=== PATIENT | female | born 1995 | race Caucasian/White ===

== ENCOUNTER → 2019-05-16 16:36 | Outpatient (BNVA) | payer SELFPAY | PROVIDERS: Family Provider Emergency Medicine; PCP Emergency Medicine; Visit Provider Nurse Practitioner Family | DX: S61.259A Open bite of unspecified finger without damage to nail, initial encounter (principal); W54.0XXA Bitten by dog, initial encounter | CPT/HCPCS: 73130 ==

== ENCOUNTER → 2019-05-24 17:00 | Outpatient (BNVA) | payer SELFPAY | PROVIDERS: Family Provider Emergency Medicine; PCP Emergency Medicine; Visit Provider Emergency Medicine | DX: N92.6 Irregular menstruation, unspecified (principal) | CPT/HCPCS: 81025; 84702 ==

== ENCOUNTER → 2019-08-12 17:03 | Outpatient (BNVA) | payer SELFPAY | PROVIDERS: Family Provider Emergency Medicine; PCP Emergency Medicine; Visit Provider Nurse Practitioner Family | DX: S99.922A Unspecified injury of left foot, initial encounter (principal); X58.XXXA Exposure to other specified factors, initial encounter | CPT/HCPCS: 73630 ==

== ENCOUNTER → 2019-10-26 15:23 | Outpatient (BNVA) | payer MEDICAID, SELFPAY | PROVIDERS: Family Provider Emergency Medicine; PCP Emergency Medicine; Visit Provider Emergency Medicine | DX: J02.9 Acute pharyngitis, unspecified (principal) | CPT/HCPCS: 87071; 87880 ==

== ENCOUNTER → 2019-10-27 16:39 | Outpatient (BNVA) | payer MEDICAID, SELFPAY | PROVIDERS: Family Provider Emergency Medicine; PCP Emergency Medicine; Visit Provider Emergency Medicine | DX: J02.9 Acute pharyngitis, unspecified (principal); R68.89 Other general symptoms and signs; Z20.828 Contact with and (suspected) exposure to other viral communicable diseases | CPT/HCPCS: 87635 ==

== ENCOUNTER → 2019-12-06 15:31 | Outpatient (BNVA) | payer MEDICAID, SELFPAY | PROVIDERS: Family Provider Emergency Medicine; PCP Emergency Medicine; Visit Provider Obstetrics & Gynecology | DX: Z30.017 Encounter for initial prescription of implantable subdermal contraceptive (principal) | CPT/HCPCS: 81025 ==

== ENCOUNTER 2019-12-16 13:09 | Outpatient (CLI) | payer SELFPAY ==
--- NOTE | 2019-12-16 13:25 | US_ITS ---
WS: [id number] ULTRASOUND RIGHT BREAST HISTORY: Right Breast Lump, Right Breast Pain COMPARISON: None available. TECHNIQUE: 2-D and Doppler. Patient directed ultrasound to the area of pain from 3:00 to 9:00 axis. There is normal breast tissue . No solid or cystic masses. No skin thickening. US/US breast RT limited* [id number] IMPRESSION: BI-RADS: 1-Negative FOLLOW-UP: See Report No abnormality RIGHT breast. No additional imaging necessary.
== END 2019-12-16 13:10 | disposition home or self-care (01) ==
LOC: RADSHAW 13:13
PROVIDERS: Visit Provider Obstetrics & Gynecology
DX: N63.10 Unspecified lump in the right breast, unspecified quadrant (principal); N64.4 Mastodynia
CPT/HCPCS: 76642

== ENCOUNTER 2022-11-07 18:01 | Emergency (ER) | payer MEDICAID, SELFPAY ==
[2022-11-07 18:03] VITALS: BP 136/94; PULSE 120; RESP 18; TEMP 36.8; O2SAT 98
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
[2022-11-07 18:15] VITALS: BP 136/94; PULSE 119; RESP 18; O2SAT 97
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
--- NOTE | 2022-11-07 19:01 | PC.NURSE ---
Report taken from AFSHIN Stewart at this time.
[2022-11-07] MEDS: HYDROcodone-acetaminophen 5-325 mg Tablet 1 TAB PO (19:20)
[2022-11-07 19:26] VITALS: BP 153/108; PULSE 125; RESP 18; O2SAT 94
--- NOTE | 2022-11-07 19:34 | PC.NURSE ---
Patient given education by nurse on how to use crutches; educated to adjust height to comfort under axilla but to not have excessive pressure under arms. Instructed to use crutches in slow, controlled manner and prompted to use toe-touch technique as tolerated, as no fractures were demonstrated on x-ray. Pt's RLE was wrapped with marisel and crutches were given to patient. Patient was encouraged to slowly use crutches; nurse noticed patient attempting to walk quickly with crutches and was educated to slow down and use crutches in calm, controlled fashion to prevent falls. Patient verbalized understanding to all teaching given and had no questions or concerns. Was given discharge education packet and verbalized understanding to use discharge packet for additional education if further questions were to come up. Patient left ER room 15 after discharge with friend, and went to ER room 13 to see , who is also a patient.
== END 2022-11-07 19:38 | disposition home or self-care (01) ==
PROVIDERS: Emergency Provider Nurse Practitioner Family
DX: Z04.1 Encounter for examination and observation following transport accident (principal); S80.11XA Contusion of right lower leg, initial encounter; I10 Essential (primary) hypertension; V49.50XA Passenger injured in collision with unspecified motor vehicles in traffic accident, initial encounter
CPT/HCPCS: 73590; 99283; E0114

== ENCOUNTER → 2022-12-15 14:58 | Outpatient (BNVA) | payer MEDICAID, SELFPAY | PROVIDERS: PCP Family Medicine; Visit Provider Family Medicine | DX: I10 Essential (primary) hypertension; F32.9 Major depressive disorder, single episode, unspecified; Z51.81 Encounter for therapeutic drug level monitoring; R00.0 Tachycardia, unspecified; Z13.1 Encounter for screening for diabetes mellitus; Z13.220 Encounter for screening for lipoid disorders; Z13.6 Encounter for screening for cardiovascular disorders; J44.9 Chronic obstructive pulmonary disease, unspecified; E34.9 Endocrine disorder, unspecified; E03.9 Hypothyroidism, unspecified | CPT/HCPCS: 80053; 80061; 84403; 84443; 85025 ==

== ENCOUNTER → 2022-12-22 10:08 | Outpatient (BNVA) | payer MEDICAID, SELFPAY | PROVIDERS: PCP Family Medicine; Visit Provider Psychiatry & Neurology Psychiatry | DX: Z79.899 Other long term (current) drug therapy (principal); F33.3 Major depressive disorder, recurrent, severe with psychotic symptoms; F43.12 Post-traumatic stress disorder, chronic; F32.1 Major depressive disorder, single episode, moderate | CPT/HCPCS: 80061; 80307; 83036 ==

== ENCOUNTER 2023-02-24 10:12 | Emergency (ER) | payer MEDICAID, SELFPAY ==
--- NOTE | 2023-02-24 10:28 | XR_ITS ---
WS: [id number] LEFT SECOND FINGER TECHNIQUE: 2 view. HISTORY: cat bite; infection COMPARISON: 05/16/2019 No fracture, dislocation or joint abnormality. There is mild diffuse soft tissue edema and swelling. No foreign body. IMPRESSION: Diffuse soft tissue edema consistent with cellulitis. No foreign body or subcutaneous air.
[2023-02-24 11:24] VITALS: BP 135/83; PULSE 91; RESP 14; TEMP 37; O2SAT 96; BMI 44.3
--- NOTE | 2023-02-24 11:53 | ED_ITS ---
HPI - Animal Bite General: Chief Complaint: Animal Bite Stated Complaint: bit by cat Time Seen by Provider: 02/24/23 11:30 Source: patient Mode of arrival: ambulatory Limitations: no limitations History of Present Illness: Patient is a 27-year-old female presents to ED today for evaluation of a cat bite to her left index finger. Patient states she had a trap set outside her house and states she accidentally dropped a stray cat. Patient states she went to remove the animal and bit her on the distal aspect of her left index finger. Patient states since then she has noticed redness. Patient was seen at a walk- in clinic and referred to the emergency department for further evaluation and rabies PEP initiation. Patient is not been running fevers. Last tetanus is unknown. complaint: animal bite Onset (ago): day(s) (yesterday) Animal: dog and cat Description of animal: unknown animal and immunizations unknown Mechanism: bite Location - Extremities: Left: hand (L index finger) Context: provoked Associated symptoms: Reports other (redness/swelling to finger); Deny chills, fever(s) or headache(s) Related Data: Patient tetanus UTD: No Review of Systems Const: Denies: fever(s), chills, body aches, fatigue or malaise Musc: Reports: extremity pain and extremity swelling; Denies: neck pain, back pain, joint pain or joint swelling Skin/Breast: Reports: other (cat bite to finger) Neuro: Denies: headache(s), numbness in extremities, weakness in extremities, sensory changes or dizziness [facility] ED PFSH: Medical History Auditory hallucinations Psychiatric care Depression Obesity Vestibular migraine Hypertension Insomnia Sinus tachycardia Surgical History H/O section Family History Grandmother Stroke maternal Hyperlipidemia maternal Breast cancer maternal Ovarian cancer maternal Family/Other Heart disease paternal side Hypertension paternal side Grandfather Diabetes maternal Mother Thyroid disease Denies family history of Colon cancer Anesthesia complication Uterine cancer Social History Smoking and tobacco/nicotine status: never used tobacco/nicotine Alcohol intake: current Alcohol intake frequency: holidays/special occasions only Alcohol type: beer, wine and hard liquor Substance/Drug Use: never Female Reproductive History: Spontaneous abortions: No Physical Exam Const: COMMON NORMALS: no acute distress, patient oriented x3, no limitations, alert and well nourished Extremity: COMMON NORMALS: capillary refill normal GENERAL: Yes normal exam except as noted LEFT UPPER EXTREMITY: Yes hand & digits (see below) Left hand and digits: Yes neurovascular exam (normal) OTHER: Patient has 2 minor appearing bite burgess to the dorsal aspect of her left index finger. She does have erythema to the dorsum of the digit extending to about her MCP joint. She feels like range of motion is difficult due to swelling however patient is able to flex and extend the digit and at this time I have zero concerns for an infectious tenosynovitis. I am easily able to passively move the digit while not eliciting any out of proportion or pain. Neuro: COMMON NORMALS: patient oriented x3, moves all extremities, no focal motor deficits and no sensory deficits noted SENSORIUM/ORIENTATION: Yes alert Course Vital Signs: Vital signs: Vital Signs Temperature 98.6 F 02/24/23 11:24 Pulse Rate 91 02/24/23 11:24 Respiratory Rate 14 02/24/23 11:24 Blood Pressure 135/83 02/24/23 11:24 Pulse Oximetry 96 02/24/23 11:24 Oxygen Delivery Me thod Room Air 02/24/23 11:24 MDM - Animal Bite Medical Decision Making XR negative for retained foreign body. Tetanus will be updated. Rabies PEP will be initiated. She was given a dose of IV Zosyn prior to discharge. She will be placed on Augmentin. Strict return ED precautions given in regards to worsening infection. Differential Diagnosis Likely cat bite Medical Records I reviewed the patient's medical records. All radiology interpretation(s) finalized by discharge Discharge Plan Discharge Patient Disposition: Home Clinical Impression: Cat bite of index finger, Rabies, need for prophylactic vaccination against Condition: Stable Prescriptions: New amoxicillin-pot clavulanate 875-125 mg tablet 1 tab PO BID Qty: 14 0RF No Action aripiprazole 10 mg tablet See Rx Instructions .ROUTE .COMPLEX Qty: 10 3RF Rx Instructions: one daily by mouth fluoxetine 40 mg capsule 40 mg PO DAILY 30 Days Qty: 30 2RF amlodipine 5 mg tablet 5 mg PO DAILY 30 Days Qty: 30 2RF trazodone 50 mg tablet 50 mg PO .qhs 30 Days Qty: 30 3RF ibuprofen 800 mg tablet 800 mg PO Q8H PRN (Reason: pain) Qty: 30 0RF Discharge Orders: Discharge ED (Routine); Ordered 02/24/23 Ordered By: Noa Chavez Referrals: Suzette Pool MD [Primary Care Provider] - Patient Instructions: Rabies Vaccine (By injection), Rabies Immune Globulin (By injection), Animal Bite (ED) Activity Restrictions/Additional Instructions: As we discussed we have initiated rabies postexposure prophylaxis for your cat bite. Upon discharge you should be provided a schedule for repeat immunizations on days 3, 7, and 14. These are being scheduled through our infusion center. Your tetanus has been updated today. You have received IV antibiotics prior to discharge. You need to fill your antibiotics immediately and start them today. These have been called in to your pharmacy on file. Need to monitor symptoms closely and return to the emergency department for worsening finger redness, swelling, increased pain, severe pain with range of motion of the finger, fevers, any streaking up your hand or forearm, or any other concerns you may have. Coding Level of Care Code ED Petroleum Refinery Worker for Melina Garcia
[2023-02-24] MEDS: piperacillin-tazobactam 3.375 GM in sodium chloride 0.9% (plus) 50 ML IV (12:12)
[2023-02-24] MEDS: tetanus-dipt-pertussis 0.5 mL SDV IM (12:14)
[2023-02-24] MEDS: rabies vaccine 2.5 unit SDV IM (12:32)
[2023-02-24] MEDS: rabies IG 300 unit/mL SDV 1 mL 2700 UNIT INFILTRATI (12:50)
--- NOTE | 2023-02-25 07:31 | DCPLANNER ---
Faxed and Messaged Infusion for a follow up appointment
== END 2023-02-24 13:29 | disposition home or self-care (01) ==
PROVIDERS: Emergency Provider Physician Assistant; PCP Family Medicine
DX: S61.251A Open bite of left index finger without damage to nail, initial encounter (principal); Z20.3 Contact with and (suspected) exposure to rabies; Z29.14 Encounter for prophylactic rabies immune globulin; Z23 Encounter for immunization; W55.01XA Bitten by cat, initial encounter; I10 Essential (primary) hypertension
CPT/HCPCS: 73140; 90375; 90471; 90675; 90715; 96365; 99284; J2543

== ENCOUNTER 2024-02-20 16:30 | Emergency (ER) | payer MEDICAID, SELFPAY ==
[2024-02-20] VITALS (9 sets, daily range): BP systolic 105–132; BP diastolic 57–81; PULSE 129–157; RESP 16–27; TEMP 37.3–38.3; O2SAT 90–96; BMI 47.2
--- NOTE | 2024-02-20 16:44 | XRR_ITS ---
PROCEDURE INFORMATION: Exam: XR Chest Exam date and time: 02/20/2024 5:03 PM Age: 28 years old Clinical indication: Cough and dyspnea; Additional info: Dyspnea/cough TECHNIQUE: Imaging protocol: Radiologic exam of the chest. Views: 1 view. COMPARISON: CR XR chest 1V [id number] 05/03/2018 7:54 AM FINDINGS: Lungs: No focal consolidation. Pleural spaces: No evidence of pneumothorax. No evidence of pleural effusion. Heart/Mediastinum: Cardiomediastinal silhouette is within normal limits. Bones/joints: No evidence of acute osseous abnormality. XR/XR chest 1V portable [id number] IMPRESSION: 1. No acute cardiopulmonary abnormality.
--- NOTE | 2024-02-20 16:49 | ECG_ITS ---
[email or web address]: 2024[facility]20 Pat Name: Nia Varma Department: Room: Gender: Female Culinary Arts Teacher: : 1995 Requested By: Arpan Michel Order Number: [id number] Nikkie MD: Eze Rogers M.D. Measurements Intervals [place] Rate: 149 P: 0 NC: 0 QRS: 70 QRSD: 86 T: -2 QT: 275 QTc: 433 Interpretive Statements ATRIAL FLUTTER/TACHYCARDIA WITH RAPID VENTRICULAR RESPONSE NONSPECIFIC T-WAVE ABNORMALITY Compared to ECG 05/03/2018 07:44:20 T-wave abnormality now present Sinus rhythm no longer present Electronically Signed On 02-20-2024 21:27:00 VICE PRESIDENT PA[employer]ER by Eze Rogers M.D. [email or web address]
[2024-02-20] MEDS: ipratropium-albuterol 3 mL Neb INHALATION ×3 (17:18→17:20)
[2024-02-20] MEDS: acetaminophen 500 mg Tablet 1000 MG PO (17:33)
[2024-02-20 17:37] LABS: Basophils % 0.1 %; Eosinophils # 0.1 10^3/uL (0.0-0.8); Eosinophils % 0.7 %; Hematocrit 39.1 % (36-47); Lymphocytes # 1.2 10^3/uL (0.8-4.8); Lymphocytes % 14.6 %; Mean Corpuscular HGB Conc 33.2 g/dL (30-55); Mean Corpuscular Hemoglobin 27.7 pg (27-33); Mean Corpuscular Volume 83.2 fl (85-98); Mean Platelet Volume 10.3 fL (7.4-10.4); Monocytes # 0.6 10^3/uL (0.2-0.9); Monocytes % 7.2 %; Neutrophils # 6.27 10^3/uL (1.8-7.7); Neutrophils % 77.2 %; Nucleated Red Blood Cells % 0 %; Platelet Count 200 10^3/cmm (157-399); Red Cell Distribution Width 14.1 % (12.1-15.1); White Blood Count 8.14 10^3/uL (3.29-11.43)
--- NOTE | 2024-02-20 17:38 | ED_ITS ---
HPI - SOB/Dyspnea 2 General: Chief Complaint: Shortness of Breath/Dyspnea Stated Complaint: SOB Time Seen by Provider: 02/20/24 17:03 History of Present Illness: HPI Narrative: Patient is a 28-year-old female that presents to the emergency department with complaints of cough, congestion, shortness of breath and fever. Patient reports she and her son were sick last month with COVID and rhinovirus. They seem to improve but became ill again approximately 1 week ago. At triage, patient is tachycardic and has a oxygen saturation between 90 and 93. She is also concerned about an abscess around her genitalia. Associated symptoms: Reports fever(s) Related Data Previous Rx's Medication Instructions Recorded ibuprofen 800 mg tablet 800 mg PO Q8H PRN pain #30 tabs 11/07/22 amlodipine 5 mg tablet 5 mg PO DAILY 30 days #30 tabs 12/15/22 trazodone 50 mg tablet 50 mg PO .qhs 30 days #30 tabs 12/31/22 aripiprazole 10 mg tablet See Rx Instructions .Route 01/14/23 .COMPLEX #10 tabs fluoxetine 40 mg capsule 40 mg PO DAILY 30 days #30 caps 01/14/23 amoxicillin 875 mg-potassium 1 tab PO BID #14 tabs 02/24/23 clavulanate 125 mg tablet sulfamethoxazole 800 1 tab PO Q12H 10 days #20 tabs 02/20/24 mg-trimethoprim 160 mg tablet (Bactrim DS) Allergies Allergy/AdvReac Type Severity Reaction Status Date / Time cefazolin Allergy Unknown family Verified 02/20/24 16:46 allergy cephalexin [From Keflex] Allergy throat Verified 02/20/24 16:46 swells metoprolol AdvReac ADR/ALGY-Pa Verified 02/20/24 16:46 lpitations Review of Systems 2 General: Reports: 10 or more systems reviewed and unremarkable except in HPI and below Const: Reports: fever(s), chills, body aches, fatigue and malaise ENMT: Reports: nasal discharge and nasal congestion Resp: Reports: dyspnea, non-productive cough and wheezing PFSH ED 2 PFSH: Medical History Auditory hallucinations Psychiatric care Depression Obesity Vestibular migraine Hypertension Insomnia Sinus tachycardia Surgical History H/O section Family History Grandmother Stroke maternal Hyperlipidemia maternal Breast cancer maternal Ovarian cancer maternal Family/Other Heart disease paternal side Hypertension paternal side Grandfather Diabetes maternal Mother Thyroid disease Denies family history of Colon cancer Anesthesia complication Uterine cancer Social History Smoking and tobacco/nicotine status: never used tobacco/nicotine Alcohol intake: current Alcohol intake frequency: holidays/special occasions only Alcohol type: beer, wine and hard liquor Substance/Drug Use: never Female Reproductive History: Spontaneous abortions: No Physical Exam 2 Const: COMMON NORMALS: no acute distress, patient oriented x3 and alert G ENERAL APPEARANCE: cooperative ORIENTATION/CONSCIOUSNESS: Yes awake, Yes oriented to person, Yes oriented to place and Yes oriented to time HENMT: COMMON NORMALS: normocephalic and atraumatic HEAD & SCALP: n ormocephalic and atraumatic FACE & SINUS: normal facial exam MOUTH: Normal oral and palatal mucosa present THROAT: posterior oropharynx normal Eye: COMMON NORMALS: Equal, round and reactive pupils present, EOMs intact bilaterally, conjunctivae normal and no scleral icterus GENERAL EYE: a ppearance normal, both eyes and all related structures ALIGNMENT: Yes alignment normal PERIORBITAL: periorbital findings normal CONJUNCTIVA: Yes conjunctivae normal PUPIL: Yes Equal, round and reactive pupils present Neck/C-Spine: COMMON NORMALS: full ROM GENERAL: Yes normal visual inspection Lymph: LYMPHATIC: no lymphadenopathy noted Chest: COMMONS NORMALS: normal inspection of the chest Breast/axilla inspection: Yes no chest deformity, asymmetry, normal contours, no nodules, masses, tenderness Resp: COMMON NORMALS: normal respiratory effort, No retractions and No use of accessory muscles EFFORT & INSPECTION: Yes able to speak in complete sentences, Yes symmetric chest movement and Yes tachypneic AUSCULTATION: d iminished lung sounds bilateral and diffuse Cardio: COMMON NORMALS: regular rhythm and Peripheral pulses 2+ throughout RATE: tachycardic (140-150) RHYTHM: regular rhythm PERIPHERAL PULSES: P eripheral pulses 2+ throughout GI: COMMON NORMALS: Normal to inspection, nondistended, normoactive bowel sounds present, Soft to palpation, non-tender and No hepatosplenomegaly present INSPECTION: Yes normal to inspection AUSCULTATION: Yes normoactive bowel sounds PALPATION: Yes Soft to palpation and Yes No hepatosplenomegaly present RECTAL EXAM: deferred : GENITAL IMAGES (FEMALE): 1. Abscess formation. Purulent bloody discharge from center of a 2 cm area that is indurated and fluctuant. THe area is already opened and draining. I was able to express 5 to 10 cc until it no longer drained. Only induration left. Extremity: COMMON NORMALS: normal to inspection GENERAL: Yes normal exam except as noted Neuro: COMMON NORMALS: patient oriented x3 SENSORIUM/ORIENTATION: Yes alert, Yes oriented to person, Yes oriented to place and Yes oriented to time CRANIAL NERVES: Yes CN normal except as noted Psych: COMMON NORMALS: mental status grossly normal, Normal thought process present, cooperative, activity/motor behavior normal, denies homicidal ideation and denies suicidal ideation THOUGHT PROCESS: Normal thought process present Skin: COMMON NORMALS: no rashes or lesions noted, no wounds and turgor normal GENERAL SKIN EXAM: no rashes or lesions noted and turgor normal Course 2 Vital Signs: Vital signs: Vital Signs Temperature 99.2 F 02/20/24 18:35 Pulse Rate 132 H 02/20/24 20:08 Respiratory Rate 27 H 02/20/24 20:08 Blood Pressure 120/57 02/20/24 20:08 Pulse Oximetry 90 02/20/24 20:08 Oxygen Delivery Me thod Room Air 02/20/24 20:08 MDM - SOB/Dyspnea Medical Decision Making Patient presented with complaints of cough, congestion, shortness of breath and a draining wound to her mons. Here in the emergency department she underwent laboratory testing which included COVID RSV and influenza along with CBC and CMP. I got a chest x-ray We got an EKG due to tachycardia. No ectopy, ST elevation or abnormal T wave inversion. Heart rate is in the 130s. She did undergo DuoNeb treatment which did improve her respiratory status but patient still complaining some shortness of breath. Oxygen saturation has improved. We will repeat the DuoNeb. Due to her tachycardia we are starting an IV and giving her IV fluids. Patient is also been treated for headache, nausea and vomiting. Chest x-ray reveals no acute finding. She has no leukocytosis or anemias. She has no significant electrolyte abnormalities. Renal function and liver function are fine COVID influenza RSV negative. Treated her abscess with Bactrim. Her respiratory function improved after Xopenex and her tachycardia improved after we treated her fever and gave her a normal saline bolus. Patient's oxygen saturation continues to decline. She is currently 89% and has a heart rate of 135. I talked with patient about admitting her but she is declining and is signing out AMA. Lab Data 02/20/24 17:16 02/20/24 17:16 Labs/Radiology: Radiology Impressions Chest X-Ray 02/20/24 16:44 IMPRESSION: 1. No acute cardiopulmonary abnormality. Laboratory Results WBC 8.14 10^3/uL (3.29-11.43) 02/20/24 17:16 RBC 4.70 10^6/uL (3.85-5.65) 02/20/24 17:16 Hgb 13.00 g/dL (11.27-16.99) 02/20/24 17:16 Hct 39.1 % (36-47) 02/20/24 17:16 MCV 83.2 fl (85-98) L 02/20/24 17:16 MCH 27.7 pg (27-33) 02/20/24 17:16 MCHC 33.2 g/dL (30-55) 02/20/24 17:16 RDW 14.1 % (12.1-15.1) 02/20/24 17:16 Plt Count 200 10^3/cmm (157-399) 02/20/24 17:16 MPV 10.3 fL (7.4-10.4) 02/20/24 17:16 Neut % (Auto) 77.2 % 02/20/24 17:16 Lymph % (Auto) 14.6 % 02/20/24 17:16 Nobles % (Auto) 7.2 % 02/20/24 17:16 Eos % (Auto) 0.7 % 02/20/24 17:16 Baso % (Auto) 0.1 % 02/20/24 17:16 Neut # (Auto) 6.27 10^3/uL (1.8-7.7) 02/20/24 17:16 Lymph # (Auto) 1.2 10^3/uL (0.8-4.8) 02/20/24 17:16 Nobles # (Auto) 0.6 10^3/uL (0.2-0.9) 02/20/24 17:16 Eos # (Auto) 0.1 10^3/uL (0.0-0.8) 02/20/24 17:16 Baso # (Auto) 0.0 10^3/uL (0.0-0.1) 02/20/24 17:16 Nucleated RBC % (auto) 0 % 02/20/24 17:16 Nucleated RBCs # 0.0 /100WBC 02/20/24 17:16 Sodium 135 mmol/L (136-145) L 02/20/24 17:16 Potassium 3.8 mmol/L (3.5-5.1) 02/20/24 17:16 Chloride 102 mmol/L (98-107) 02/20/24 17:16 Carbon Dioxide 21 mmol/L (22-29) L 02/20/24 17:16 Anion Gap 15.8 (5-19) 02/20/24 17:16 BUN 6 mg/dL (6-20) 02/20/24 17:16 Creatinine 0.7 mg/dL (0.5-0.9) 02/20/24 17:16 GFR Calculation 100.4 mL/min (90-130) 02/20/24 17:16 Glucose 95 mg/dL (65-115) 02/20/24 17:16 Calculated Osmolality 277 mOsm/kg (285-295) L 02/20/24 17:16 Calcium 9.4 mg/dL (8.5-10.5) 02/20/24 17:16 Total Bilirubin 0.5 mg/dL (0.15-1.2) 02/20/24 17:16 AST 18 U/L (0-32) 02/20/24 17:16 ALT 20 U/L (0-33) 02/20/24 17:16 Alkaline Phosphatase 87 U/L (35-105) 02/20/24 17:16 Total Protein 7.9 g/dL (6.6-8.7) 02/20/24 17:16 Albumin 4.4 g/dL (3.5-5.2) 02/20/24 17:16 Globulin 3.5 g/dL (1.3-4.6) 02/20/24 17:16 Coronavirus (PCR) Negative (Negative) 02/20/24 17:05 Influenza A (PCR) Negative (Negative) 02/20/24 17:05 Influenza Type B (PCR) Negative (Negative) 02/20/24 17:05 RSV (PCR) Negative (Negative) 02/20/24 17:05 All radiology interpretation(s) finalized by discharge Discharge Plan Discharge Patient Disposition: Left Against Medical Advice Clinical Impression: Hypoxia, URI (upper respiratory infection), Abscess Condition: Stable Prescriptions: New sulfamethoxazole-trimethoprim [Bactrim DS] 800-160 mg tablet 1 tab PO Q12H 10 Days Qty: 20 0RF No Action aripiprazole 10 mg tablet See Rx Instructions .ROUTE .COMPLEX Qty: 10 3RF Rx Instructions: one daily by mouth fluoxetine 40 mg capsule 40 mg PO DAILY 30 Days Qty: 30 2RF amlodipine 5 mg tablet 5 mg PO DAILY 30 Days Qty: 30 2RF trazodone 50 mg tablet 50 mg PO .qhs 30 Days Qty: 30 3RF ibuprofen 800 mg tablet 800 mg PO Q8H PRN (Reason: pain) Qty: 30 0RF amoxicillin-pot clavulanate 875-125 mg tablet 1 tab PO BID Qty: 14 0RF Referrals: Suzette Pool MD [Primary Care Provider] - Activity Restrictions/Additional Instructions: Please monitor your symptoms closely and come back to the emergency department. We are concerned that you could get worse. While you were here, your heart rate is only increased in your oxygen saturation is continue to decrease. Going home you could be at risk for worsening symptoms. Please return immediately if you develop worsening symptoms. Please make sure somebody is there to take care of your baby while you are this ill. Please do not vape or smoke. . I have provided you with the Bactrim prescription for the abscess. You will need to pick that up at the pharmacy tomorrow Coding Level of Care Code ED Retail Advertising Executive for Melina Garcia
[2024-02-20 17:52] LABS: Covid PCR NEGATIVE (Negative); Influenza A NEGATIVE (Negative); Influenza B NEGATIVE (Negative); Respiratory Syncytial Virus Ce NEGATIVE (Negative)
[2024-02-20 17:57] LABS: Alanine Aminotransferase 20 U/L (0-33); Albumin Level 4.4 g/dL (3.5-5.2); Alkaline Phosphatase 87 U/L (35-105); Blood Urea Nitrogen 6 mg/dL (6-20); Calcium 9.4 mg/dL (8.5-10.5); Carbon Dioxide 21 mmol/L (22-29); Chloride 102 mmol/L (98-107); Creatinine Clr Calc Pharmacy 186.3446; Globulin 3.5 g/dL (1.3-4.6); Glomerular Filtration Rate 100.4 mL/min (90-130); Glucose 95 mg/dL (65-115); Osmolality Calculated 277 mOsm/kg (285-295); Sodium 135 mmol/L (136-145); Total Bilirubin 0.5 mg/dL (0.15-1.2); Total Protein 7.9 g/dL (6.6-8.7)
[2024-02-20 17:58] LABS: Anion Gap 15.8 (5-19); Aspartate Amino Transferase 18 U/L (0-32); Potassium 3.8 mmol/L (3.5-5.1)
[2024-02-20] MEDS: ketorolac 30 mg/mL INJ IVP (18:08)
[2024-02-20] MEDS: diphenhydrAMINE 50 mg/mL SDV 1mL 25 MG IVP (18:10)
[2024-02-20] MEDS: sodium chloride 0.9% 1,000 ML 999 ML IV (18:34)
[2024-02-20] MEDS: levalbuterol 1.25 mg/3 mL Neb INHALATION (18:41)
[2024-02-20] MEDS: sulfamethoxazole-trimeth DS 160-800 mg Tablet 2 TAB PO (19:13)
== END 2024-02-20 20:50 | disposition left against medical advice (07) ==
PROVIDERS: Family Medicine; Emergency Provider Nurse Practitioner; PCP Family Medicine
DX: J06.9 Acute upper respiratory infection, unspecified (principal); R09.02 Hypoxemia; L02.215 Cutaneous abscess of perineum
CPT/HCPCS: 71045; 80053; 85025; 87070; 87637; 93005; 94640; 96374; 96375; 99285; J1200; J1885; J7030; J7614

== ENCOUNTER 2024-02-20 23:42 | Inpatient (IN) | payer MEDICAID, SELFPAY ==
[2024-02-20 23:43] VITALS: BP 140/83; PULSE 125; RESP 24; TEMP 36.4; O2SAT 94; BMI 47.2
[2024-02-21] VITALS (111 sets, daily range): BP systolic 101–131; BP diastolic 48–101; PULSE 88–131; RESP 14–45; TEMP 36.9–37.9; O2SAT 87–98; BMI 45.6
--- NOTE | 2024-02-21 01:57 | CTR_ITS ---
PROCEDURE INFORMATION: Exam: CTA Chest With Contrast Exam date and time: 02/21/2024 2:34 AM Age: 28 years old Clinical indication: Pain; Shortness of breath; Chest pressure; Patient HX: Chest discomfort with SOB and tachycardia; Additional info: Chest pressure, SOB, tachycardia TECHNIQUE: Imaging protocol: Computed tomographic angiography of the chest with contrast. Exam focused on the arteries. 3D rendering (Not supervised by radiologist): MIP and/or 3D reconstructed images were created by the technologist. Radiation optimization: All CT scans at this facility use at least one of these dose optimization techniques: automated exposure control; mA and/or kV adjustment per patient size (includes targeted exams where dose is matched to clinical indication); or iterative reconstruction. Contrast material: OMNI 350; Contrast volume: 65 ml; Contrast route: INTRAVENOUS (IV); COMPARISON: CR (CHEST, ) 02/20/2024 5:03 PM RADIATION DOSE METRICS: Total DLP (mGy-cm): 521.55 FINDINGS: Pulmonary arteries: Normal. No pulmonary emboli. Aorta: Unremarkable. No aortic aneurysm. No aortic dissection. Lungs: Minimal faint semi solid infiltrates bilaterally represents a mild nonspecific multifocal pneumonia. Calcified granuloma in the right lower lobe. Pleural spaces: Unremarkable. No pneumothorax. No pleural effusion. Heart: Unremarkable. No cardiomegaly. No pericardial effusion. Lymph nodes: Visible central lymph nodes are presumably reactive but there is moderate 19 cm splenomegaly present. Spleen: Moderate 19 cm splenomegaly. Bones/joints: Unremarkable. No acute fracture. Soft tissues: Unremarkable. CT/CT angio chest PE protcl [id number] IMPRESSION: 1. 19 cm splenomegaly. Correlate clinically for cause. 2. Minimal infiltrates with mild central adenopathy, likely reactive but given the splenomegaly a neoplastic process should be considered.
--- NOTE | 2024-02-21 01:58 | ECG_ITS ---
[employer] Test Date: 2024-02-21 Pat Name: Nia Varma Department: Room: Gender: Female Kennel Manager Dog Track: : 1995 Requested By: Vladimir Rodriguez Order Number: [id number] Nikkie MD: Eze Rogers M.D. Measurements Intervals [place] Rate: 137 P: 56 MS: 147 QRS: 48 QRSD: 98 T: 45 QT: 303 QTc: 458 Interpretive Statements SINUS TACHYCARDIA NONSPECIFIC T-WAVE ABNORMALITY ABNORMAL RHYTHM ECG Compared to ECG 02/20/2024 16:49:18 Atrial flutter no longer present T-wave abnormality still present Electronically Signed On 02-21-2024 13:30:04 PRESSURIZATION MECHANIC by Eze Rogers M.D. [email or web address]
--- NOTE | 2024-02-21 01:59 | ED_ITS ---
HPI - SOB/Dyspnea General: Chief Complaint: Shortness of Breath/Dyspnea Stated Complaint: back SOB Time Seen by Provider: 02/21/24 01:48 History of Present Illness: HPI Narrative: 28-year-old female with just short of a week of symptoms. She has had cough, congestion, shortness of breath. She was seen last night at this facility in the ER. At that point, she was tachycardic and hypoxic. Heart rate was as high as 150s. Chest x-ray was negative. She was told she needed to be admitted, but her 3-month-old is sick as well, and wanted to take her 3-month-old home. She presents this morning with the same symptoms of cough, congestion, shortness of breath and tachycardia. She is having some chest pressure. Small abscess near her mons pubis was drained via I&D on her prior visit without complication. Related Data Home Medications Medication Instructions Recorded Confirmed ferrous sulfate 325 mg (65 mg 325 mg PO DAILY 02/21/24 02/21/24 iron) tablet (iron) metformin 500 mg tablet 500 mg PO DAILY 02/21/24 02/21/24 Previous Rx's Medication Instructions Recorded ibuprofen 800 mg tablet 800 mg PO Q8H PRN pain #30 tabs 11/07/22 sulfamethoxazole 800 1 tab PO Q12H 10 days #20 tabs 02/20/24 mg-trimethoprim 160 mg tablet (Bactrim DS) Allergies Allergy/AdvReac Type Severity Reaction Status Date / Time cefazolin Allergy Unknown family Verified 02/20/24 23:52 allergy cephalexin [From Keflex] Allergy throat Verified 02/20/24 23:52 swells metoprolol AdvReac ADR/ALGY-Pa Verified 02/20/24 23:52 lpitations PFSH ED PFSH: Medical History Auditory hallucinations Psychiatric care Depression Obesity Vestibular migraine Hypertension Insomnia Sinus tachycardia Surgical History H/O section Family History Grandmother Stroke maternal Hyperlipidemia maternal Breast cancer maternal Ovarian cancer maternal Family/Other Heart disease paternal side Hypertension paternal side Grandfather Diabetes maternal Mother Thyroid disease Denies family history of Colon cancer Anesthesia complication Uterine cancer Social History Smoking and tobacco/nicotine status: never used tobacco/nicotine Alcohol intake: current Alcohol intake frequency: holidays/special occasions only Alcohol type: beer, wine and hard liquor Substance/Drug Use: never Female Reproductive History: Spontaneous abortions: No Physical Exam Const: GENERAL APPEARANCE: cooperative and ill appearing; not frail appearing HENMT: COMMON NORMALS: normocephalic, atraumatic and Normal external nose present HEAD & SCALP: normocephalic and atraumatic FACE & SINUS: normal facial exam and face symmetric NOSE: Normal external nose present Eye: COMMON NORMALS: Equal, round and reactive pupils present and EOMs intact bilaterally PUPIL: Yes Equal, round and reactive pupils present Neck/C-Spine: GENERAL: Yes trachea midline Chest: CHEST: Yes Symmetrical chest wall rise Resp: COMMON NORMALS: clear to auscultation bilaterally EFFORT & INSPECTION: Yes symmetric chest movement, Yes tachypneic and Yes labored (Mildly) AUSCULTATION: clear to auscultation bilaterally, no rales, no rhonchi and no wheezes Cardio: COMMON NORMALS: regular rhythm RATE: tachycardic RHYTHM: regular rhythm GI: COMMON NORMALS: Normal to inspection, nondistended, normoactive bowel sounds present Extremity: COMMON NORMALS: no pedal edema Neuro: MUMTAZ COMA SCALE: document GCS findings Mumtaz coma scale eye opening: Spontaneous Mumtaz coma scale verbal response: Orientated Mumtaz coma scale motor response: Obey commands Mumtaz coma scale total score: 15 SENSORY EXAM: Yes extremities (intact) Psych: COMMON NORMALS: speech normal SPEECH: Yes normal speech Skin: COMMON NORMALS: no rashes or lesions noted GENERAL SKIN EXAM: no rashes or lesions noted Course Vital Signs: Vital signs: Vital Signs Temperature 98.5 F 02/21/24 05:55 Pulse Rate 103 H 02/21/24 14:00 Respiratory Rate 19 H 02/21/24 13:30 Blood Pressure 107/71 02/21/24 13:30 Pulse Oximetry 94 02/21/24 13:30 Oxygen Delivery Me thod Room Air 02/21/24 08:49 MDM - SOB/Dyspnea Medical Decision Making This patient remains tachycardic, up to 150. She is not hypotensive. She is mildly hypoxic with saturations of 90 to 94%. She is tachypneic as well. Chest x-ray was negative last night. Laboratory was added to her prior blood including magnesium, hCG, TSH. Her TSH is normal. CTA of the chest is pending, but shows some hazy opacities and no definite large PE. Spoke with the hospitalist regarding continued tachycardia, hypoxia, increased respiratory rate. She has a cephalosporin allergy that is significant. She is placed on Levaquin after blood cultures. She will be observed. Hospitalist agrees Lab Data Labs/Radiology: Radiology Impressions Chest CTA 02/21/24 01:57 IMPRESSION: 1. 19 cm splenomegaly. Correlate clinically for cause. 2. Minimal infiltrates with mild central adenopathy, likely reactive but given the splenomegaly a neoplastic process should be considered. Abdomen/Pelvis CT 02/21/24 08:01 IMPRESSION: Splenomegaly. Hand X-Ray 02/21/24 09:49 IMPRESSION: No acute findings. Laboratory Results D-Dimer 0.74 ug/mLFEU (0-0.59) H 02/21/24 04:55 Magnesium 1.7 mg/dL (1.7-2.3) 02/21/24 04:55 Carcinoembryonic Ag 0.6 ng/mL (0.0-4.7) 02/21/24 04:55 CA 125 Antigen 9.5 U/mL (0-35) 02/21/24 04:55 TSH 1.31 uIU/mL (0.27-4.20) 02/20/24 17:16 HCG, Qual Negative (Negative) 02/21/24 04:55 Monoscreen Negative (Negative) 02/21/24 04:55 XR interpretation done by ED provider, pending radiology final review Discharge Plan Discharge Patient Disposition: Placed in Observation Admit Provider: Manuel Kumar Clinical Impression: Sinus tachycardia, Acute hypoxemic respiratory failure Coding Level of Care Code ED Room Service Associate for Melina Garcia
[2024-02-21] MEDS: sodium chloride 0.9% 1,000 ML 999 ML IV (02:23)
[2024-02-21 02:36] LABS: Thyroid Stimulating Hormone 1.31 uIU/mL (0.27-4.20)
[2024-02-21] MEDS: iohexol 350 mg/mL 500 mL Btl (per mL) IV (02:44)
--- NOTE | 2024-02-21 03:04 | PC.NURSE ---
Rounded on pt. pt stated that she coughed and accidentally urinated on self. Clean bottoms provided. Clean linens provided. Clean clothes and feminine pads provided. Pt stated she and her would take care of incontinence care. Call light in reach.
[2024-02-21] MEDS: dilTIAZem 5 mg/mL SDV 5 mL 15 MG IVP (03:22)
[2024-02-21] MEDS: acetaminophen 500 mg Tablet 1000 MG PO (03:22)
[2024-02-21] MEDS: levofloxacin-dextrose 5 % 750 MG/150 ML PREMIX 100 MG IV (05:02)
[2024-02-21 05:33] LABS: HCG, Serum Qual Negative (Negative)
[2024-02-21 05:42] LABS: Magnesium 1.7 mg/dL (1.7-2.3)
--- NOTE | 2024-02-21 07:25 | P.HP_ITS ---
Providers/Chief Complaint Admitting Physician: Manuel Kumar MD Chief Complaint: SOB History of Present Illness Nia Varma is a 28 year old female with history of tachycardia, present to the hospital with chief complaint of fever shortness of breath. Patient was diagnosed sinus tach heart your heart rate was fluctuating between 1 40-1 70s, initial EKG read as atrial flutter however she does have prominent P waves on subsequent EKG, patient is describing worsening of symptoms in last 3 days with fever tachycardia/palpitation chest pain and shortness of breath. Her son who is 3 months old has common cold variant of COVID. Workup in the ER revealed fever, CTA chest rule out PE however it did continuous pickling line pickler pulmonary adenopathy and splenomegaly, on further questioning patient is stating that she was told in the past that she has a breast lump and she could not follow-up secondary to COVID-19 pandemic, her mother secondary to COVID-19 Patient is endorsing strong family history of cancer, premature in the family She does endorse to electronic cigarettes/vapes Does not drink alcohol Stating that she had 3 C-sections, latest was 3 months ago, she has stopped breast-feeding her son because there was some blood noticed in the breastmilk which she is attributing to using breast pumps quite frequently At the time of my evaluation patient is stating that she feels heavy in her chest Her heart rate is around 120 sinus tachycardia Patient is stating that sometimes her heart rate would go higher, as per the patient cardiology has seen her in the past and told her not to worry about this She is also endorsing waking up drenched in sweat sometimes, back pain, Review of Systems Const: Reports: fever(s) Eyes: Denies: change in vision ENMT: Denies: throat pain Card: Reports: chest pain Resp: Reports: dyspnea Medications/Allergies Home Medications Medication Instructions Recorded Confirmed Last Taken Type ibuprofen 800 mg tablet 800 mg PO Q8H PRN pain #30 tabs 11/07/22 02/21/24 Unknown Rx sulfamethoxazole 800 1 tab PO Q12H 10 days #20 tabs 02/20/24 02/21/24 Unknown Rx mg-trimethoprim 160 mg tablet (Bactrim DS) ferrous sulfate 325 mg (65 mg 325 mg PO DAILY 02/21/24 02/21/24 02/19/24 History iron) tablet (iron) metformin 500 mg tablet 500 mg PO DAILY 02/21/24 02/21/24 02/19/24 History Allergies Allergy/AdvReac Type Severity Reaction Status Date / Time cefazolin Allergy Unknown family Verified 02/20/24 23:52 allergy cephalexin [From Keflex] Allergy throat Verified 02/20/24 23:52 swells metoprolol AdvReac ADR/ALGY-Pa Verified 02/20/24 23:52 lpitations PFSH Acute PFSH: Medical History Auditory hallucinations Psychiatric care Depression Obesity Vestibular migraine Hypertension Insomnia Sinus tachycardia Surgical History H/O section Family History Grandmother Stroke maternal Hyperlipidemia maternal Breast cancer maternal Ovarian cancer maternal Family/Other Heart disease paternal side Hypertension paternal side Grandfather Diabetes maternal Mother Thyroid disease Denies family history of Colon cancer Anesthesia complication Uterine cancer Social History Smoking and tobacco/nicotine status: never used tobacco/nicotine Alcohol intake: current Alcohol intake frequency: holidays/special occasions only Alcohol type: beer, wine and hard liquor Substance/Drug Use: never Female Reproductive History: Spontaneous abortions: No Vitals/I&O/Wt Last Vital Signs Temp 98.5 F 02/21/24 05:55 Pulse 117 H 02/21/24 07:09 Resp 22 H 02/21/24 07:09 BP 101/78 02/21/24 07:09 Pulse Ox 96 02/21/24 07:09 O2 Del Method Room Air 02/21/24 07:09 02/20/24 02/21/24 02/21/24 22:59 06:59 14:59 Intake Total 1150 / 1150 Balance 1150 / 1150 Weight last 48 hrs Weight 140 kg Weight 145.15 kg Physical Exam Narrative: Morbidly obese Currently in sinus rhythm Sinus tachycardia On room air Afebrile this morning Blood pressure stable GCS 15 I did not appreciate murmur Splenomegaly Distended nontender abdomen Patient is pleasant Anticipating Facial flushing On room air Data Micro: Microbiology 02/21/24 04:52 Blood Culture - Preliminary Blood SPECIMEN COLLECTED 02/21/24 04:55 Blood Culture - Preliminary Blood SPECIMEN COLLECTED A&P Assessment and plan (1) Sinus tachycardia: (2) Obesity: Qualifiers: Obesity type: due to excess calories Obesity classification: adult class 3 (BMI >= 40) Serious obesity comorbidity presence: with serious comorbidity Body mass index: BMI 40.0-44.9 Qualified Code(s): E66.01 - Morbid (severe) obesity due to excess calories; Z68.41 - Body mass index [BMI] 40.0- 44.9, adult (3) Splenomegaly: Plan Sinus tachycardia Rule out atrial flutter Start IV fluids Fever 100.9, upper airway infection? Add doxycycline Respiratory panel unremarkable Hypomagnesemia: Replenished with p.o. regimen TSH unremarkable, Will request D-dimer CTA chest rule out PE Sinus tachycardia is not proportionate to her low-grade fever Requested echo Add low-dose metoprolol, palpitation is not allergy of metoprolol Splenomegaly, pulmonary adenopathy Endorses to vape Endorsing history of breast lump Endorsing history of waking up drenched in sweat, back pain, I will request CT abdomen pelvis and ultrasound of the breast tissue Patient needs workup for splenomegaly, CEA, CA125 requested Patient will need hematology referral outpatient at discharge Check infectious mono Morbidly obese, rule out sleep apnea, overnight pulse ox if she ends up staying today Full code Cardiac diet Attestations Medical Necessity Statement*: Anticipate discharge within 48 hours Diagnoses Sinus tachycardia R00.0 Class 3 severe obesity due to excess calories with serious comorbidity and body mass index (BMI) of 40.0 to 44.9 in adult E66.01; Z68.41 Obesity type: due to excess calories Obesity classification: adult class 3 (BMI >= 40) Serious obesity comorbidity presence: with serious comorbidity Body mass index: BMI 40.0-44.9 Splenomegaly R16.1
[2024-02-21 07:27] LABS: Bilirubin Urine Negative (Negative); Blood Urine Negative (Negative); Glucose Urine UA Negative (Normal); Ketones Urine Negative (Negative); Leukocyte Esterase Urine Negative (Negative); Nitrate Urine Negative (Negative); Protein Urine Negative (Negative); Urine Appearance Clear (CLEAR); Urine Color Yellow (Yellow); pH Urine 6.5 (5-7)
--- NOTE | 2024-02-21 07:29 | USCV_ITS ---
Nia Varma Age: 28 Gender: F : 1995 Exam Date: 02/21/2024 14:49 Ordering Phys: Manuel Kumar MD Technologist: Ilia Jackson Exam Location: [facility] [place] Indication: st BP: 107 / 71 HR: 97 Rhythm: Sinus Technical Quality: Adequate MEASUREMENTS (Male / Female) Normal Values 2D ECHO LV Diastolic Diameter PLAX 5.0 cm 4.2 - 5.9 / 3.9 - 5.3 cm IVS Diastolic Thickness 1.0 cm 0.6 - 1.0 / 0.6 - 0.9 cm IVS Systolic Thickness 1.3 cm LVPW Diastolic Thickness 1.7 cm 0.6 - 1.0 / 0.6 - 0.9 cm LVPW Systolic Thickness 2.4 cm LVOT Diameter 2.1 cm LV Ejection Fraction 2D Teich 56.1 % LV Ejection Fraction MOD 4C 60.0 % LV Ejection Fraction MOD 2C 73.5 % LV Ejection Fraction 2C AL 73.4 % LA Diameter 3.7 cm RA Systolic Volume 4C AL 42.5 ml RA Systolic Volume 4C MOD 41.6 ml LA Sys Volume AL 40.5 cm cubed LA Sys Volume Index AL 15.1 cm cubed/m squared Aorta at Sinotubular Diameter 1.9 cm IVC Diameter 1.9 cm M-MODE LA Ao Ratio MM 1.4 AV Cusp Separation MM 1.9 cm DOPPLER AV Peak Velocity 149.0 cm/s LVOT Peak Velocity 104.0 cm/s AV Area Cont Eq vti 1.9 cm squared AV Area Cont Eq pk 2.3 cm squared MV Peak Velocity 94.0 cm/s MV Area PHT 11.5 cm squared Mitral E to A Ratio 0.8 TR Peak Velocity 227.0 cm/s TR Peak Gradient 20.6 mmHg TR Mean Velocity 185.0 cm/s TR Mean Gradient 14.7 mmHg TR Velocity Time Integral 65.7 cm PV Peak Velocity 111.0 cm/s RV Ejection Time 0.2 s FINDINGS Left Ventricle Left ventricular ejection fraction is estimated at 65%. No regional wall motion abnormalities. Relative hypokinesia of the apical septum Right Ventricle The right ventricle is normal in size and function. Right Atrium The right atrium is normal in size. Left Atrium The left atrium is normal in size. Mitral Valve No gross abnormalities noted Aortic Valve No gross abnormalities noted Tricuspid Valve Trace tricuspid valve regurgitation. Pulmonic Valve No gross abnormalities noted Pericardium Normal pericardium without effusion. Aorta Normal ascending aorta dimension. IVC The inferior vena cava appears normal. CONCLUSIONS Left ventricular ejection fraction is estimated at 65%. No regional wall motion abnormalities. Relative hypokinesia of the apical septum could be nonspecific finding, cannot exclude ischemia Normal cardiac chamber sizes. No intracardiac masses. No pericardial effusion. Trace tricuspid valve regurgitation. Estimated pulmonary artery peak systolic pressure, within normal limit No similar previous studies are available for comparison Dr Eze Rogers MD [facility] (Electronically Signed) Final Date: 21 February 2024 17:50 S
[2024-02-21 07:32] LABS: Add Urine Microscopic? YES; Bacteria Urine None Seen /hpf; RBC Urine 0-2 /hpf (0-2); Squamous Epithelial Cell Urine 0-5 /hpf (0-5); WBC Urine 0-5 /hpf (0-5)
[2024-02-21 07:34] LABS: Amphetamines Screen Urine Negative (Negative); Barbiturates Screen Urine Negative (Negative); Benzodiazepines Screen Urine Negative (Negative); Cocaine Screen Urine Negative (Negative); Opiate Screen Urine Positive (Negative); PCP Screen Urine Negative (Negative); THC Screen Urine Negative (Negative)
[2024-02-21 07:39] LABS: Specific Gravity, Urine 1.041 (1.005-1.030)
--- NOTE | 2024-02-21 08:01 | CTR_ITS ---
PROCEDURE INFORMATION: Exam: CT Abdomen And Pelvis Without Contrast Exam date and time: 02/21/2024 2:06 PM Age: 28 years old Clinical indication: Other: Splenomegaly TECHNIQUE: Imaging protocol: Computed tomography of the abdomen and pelvis without contrast. Radiation optimization: All CT scans at this facility use at least one of these dose optimization techniques: automated exposure control; mA and/or kV adjustment per patient size (includes targeted exams where dose is matched to clinical indication); or iterative reconstruction. COMPARISON: CT angio chest PE protcl [id number] 02/21/2024 2:34 AM RADIATION DOSE METRICS: Total DLP (mGy-cm): 1342.83 FINDINGS: Liver: Normal. No mass. Gallbladder and biliary ducts: Normal. No calcified stones. No ductal dilation. Pancreas: Normal. No ductal dilation. Spleen: 18 cm splenomegaly. Adrenal glands: Normal. No mass. Kidneys and ureters: Normal. No hydronephrosis. Stomach and bowel: Unremarkable. No obstruction. No mucosal thickening. Appendix: No evidence of appendicitis. Intraperitoneal space: Unremarkable. No free air. No significant fluid collection. Vasculature: Unremarkable. No abdominal aortic aneurysm. Lymph nodes: Unremarkable. No enlarged lymph nodes. Urinary bladder: Unremarkable as visualized. Reproductive: Unremarkable as visualized. Bones/joints: Unremarkable. No acute fracture. Soft tissues: Unremarkable. CT/CT abdomen pelvis con [id number] IMPRESSION: Splenomegaly.
[2024-02-21 08:36] LABS: Monoscreen Negative (Negative)
[2024-02-21 08:43] LABS: D Dimer 0.74 ug/mLFEU (0-0.59)
[2024-02-21] MEDS: sodium chloride 0.9% 1,000 ML 75 ML IV (08:51)
[2024-02-21] MEDS: acetaminophen 500 mg Tablet PO ×2 (08:51→17:18)
[2024-02-21] MEDS: enoxaparin 40 mg/0.4 mL Syringe SUBCUT (08:52)
[2024-02-21] MEDS: magnesium oxide 400 mg tablet PO ×2 (08:52→17:14)
[2024-02-21] MEDS: doxycycline 100 mg Tablet PO (08:52)
[2024-02-21 08:57] LABS: Carcinoembryonic Antigen 0.6 ng/mL (0.0-4.7)
[2024-02-21] MEDS: metoprolol tartrate 25 mg Tablet PO ×2 (09:02→20:45)
[2024-02-21 09:26] LABS: CA 125 9.5 U/mL (0-35)
--- NOTE | 2024-02-21 09:49 | XRR_ITS ---
PROCEDURE INFORMATION: Exam: XR Left Hand Exam date and time: 02/21/2024 2:07 PM Age: 28 years old Clinical indication: Pain; Finger(s); Left; Additional info: Pain at base of thumb TECHNIQUE: Imaging protocol: Radiologic exam of the left hand. Views: 3 or more views. COMPARISON: No relevant prior studies available. FINDINGS: Bones/joints: Normal. No acute osseous or joint abnormality. No arthritic changes. Soft tissues: Normal. XR/XR hand LT 2V [id number] IMPRESSION: No acute findings.
[2024-02-21 10:02] LABS: Rapid Strep A Test Negative (Negative)
[2024-02-21 10:12] LABS: Erythrocyte Sedimentation Rate 25 mm/hr (0-15)
[2024-02-21] MEDS: benzonatate 100 mg Capsule PO (10:26)
[2024-02-21 10:27] LABS: C Reactive Protein 83.6 mg/L (0.0-4.9)
[2024-02-21 10:32] LABS: Procalcitonin 0.12 ng/mL (0-0.5)
--- NOTE | 2024-02-21 13:03 | P.PN_ITS ---
Subjective Subjective: Patient was seen this morning, she is alert oriented x 3, following all commands, does report fatigue, malaise, sore throat, does report cervical lymphadenopathy and tenderness, no abdominal pain, no diarrhea, she has had a couple of family numbers that in the early 40s to 50s, she is not exactly sure if they are from cardiovascular complications, no chest pain, but does have chest palpitations, Vitals/I&O/Wt Last Vital Signs Temp 98.5 F 02/21/24 05:55 Pulse 131 H 02/21/24 08:49 Resp 17 02/21/24 08:49 BP 101/78 02/21/24 07:09 Pulse Ox 98 02/21/24 08:49 O2 Del Method Room Air 02/21/24 08:49 02/20/24 02/21/24 02/21/24 22:59 06:59 14:59 Intake Total 1150 / 1150 Balance 1150 / 1150 Weight last 48 hrs Weight 140 kg Weight 145.15 kg Physical Exam Const: COMMON NORMALS: no acute distress and patient oriented x3 Resp: COMMON NORMALS: normal respiratory effort, No retractions and No use of accessory muscles AUSCULTATION: crackles and wheezes Cardio: COMMON NORMALS: regular rate, regular rhythm, S1 normal heart sound present and S2 normal heart sound present RATE: regular rate RHYTHM: regular rhythm HEART SOUNDS: S1 normal heart sound present and S2 normal heart sound present GI: COMMON NORMALS: Normal to inspection, nondistended, normoactive bowel sounds present and non-tender Extremity: COMMON NORMALS: no pedal edema Neuro: COMMON NORMALS: patient oriented x3 Psych: COMMON NORMALS: mental status grossly normal Data Micro: Microbiology 02/21/24 04:52 Blood Culture - Preliminary Blood SPECIMEN COLLECTED 02/21/24 04:55 Blood Culture - Preliminary Blood SPECIMEN COLLECTED A&P Assessment and plan (1) Sinus tachycardia: (2) Obesity: Qualifiers: Obesity type: due to excess calories Obesity classification: adult class 3 (BMI >= 40) Serious obesity comorbidity presence: with serious comorbidity Body mass index: BMI 40.0-44.9 Qualified Code(s): E66.01 - Morbid (severe) obesity due to excess calories; Z68.41 - Body mass index [BMI] 40.0- 44.9, adult (3) Splenomegaly: (4) Pneumonia: Plan Atypical pneumonia -CT of the chest shows infiltrates, with mild central adenopathy -Switch to azithromycin -Switch to aztreonam -Sputum culture Sinus tachycardia Rule out atrial flutter Start IV fluids Fever 100.9, concern for viral infection Respiratory panel unremarkable Hypomagnesemia: Replenished with p.o. regimen TSH unremarkable, d dimer 0.[address]/CT angio chest PE protcl [id number] IMPRESSION: 1. 19 cm splenomegaly. Correlate clinically for cause. 2. Minimal infiltrates with mild central adenopathy, likely reactive but given the splenomegaly a neoplastic process should be considered. Sinus tachycardia, telemetry monitoring Requested echo Add low-dose metoprolol Splenomegaly, pulmonary adenopathy Endorses to vape Endorsing history of breast lump Endorsing history of waking up drenched in sweat, back pain, CT abdomen pelvis and ultrasound of the breast tissue splenomegaly, CEA, CA125 requested, ebv panel, hiv, acute hep Patient will need hematology referral outpatient at discharge type 2 diabetes, low dose insulin sliding scale Morbidly obese,sleep apnea concerns, neeeds to see pmd Full code Cardiac diet Attestations Medical Necessity Statement*: Patient requires hospitalization for atypical pneumonia, sinus tachycardia, splenomegaly Diagnoses Sinus tachycardia R00.0 Class 3 severe obesity due to excess calories with serious comorbidity and body mass index (BMI) of 40.0 to 44.9 in adult E66.01; Z68.41 Obesity type: due to excess calories Obesity classification: adult class 3 (BMI >= 40) Serious obesity comorbidity presence: with serious comorbidity Body mass index: BMI 40.0-44.9 Splenomegaly R16.1 Pneumonia J18.9
[2024-02-21 13:14] LABS: Glucose Point of Care 104 mg/dL (70-110)
[2024-02-21 14:17] LABS: HIV 1 & 2 Antibody Non-Reactive (Non-Reactiv); HIV 1 & 2 Antigen Non-Reactive (Non-Reactiv)
[2024-02-21 14:26] LABS: Hepatitis A Antibody IgM Non-Reactive (Nonreactive); Hepatitis B Core IgM Non-Reactive (Nonreactive); Hepatitis B Surface Antigen Non-Reactive (Nonreactive); Hepatitis C Virus Antibody Non-Reactive (Nonreactive)
[2024-02-21 14:56] LABS: MRSA PCR OZH (swab) NOT DETECTED (Not Detecte)
[2024-02-21 15:33] LABS: Adenovirus Not Detected (NOT DETECT); Chlamydia Pneumoniae Not Detected (NOT DETECT); Coronavirus 229E,HKU1,NL63,OC4 Not Detected (NOT DETECT); Human Metapneumovirus Not Detected (NOT DETECT); Human Rhinovirus/Enterovirus Not Detected (NOT DETECT); Influenza A Not Detected (NOT DETECT); Influenza A H1 Not Detected (NOT DETECT); Influenza A H1-2009 Not Detected (NOT DETECT); Influenza A H3 Not Detected (NOT DETECT); Influenza B Not Detected (NOT DETECT); Mycoplasma Pneumoniae Not Detected (NOT DETECT); Parainfluenza Virus Type 1 Not Detected (NOT DETECT); Parainfluenza Virus Type 2 Not Detected (NOT DETECT); Parainfluenza Virus Type 3 Not Detected (NOT DETECT); Parainfluenza Virus Type 4 Not Detected (NOT DETECT); Respiratory Syncytial Virus A Not Detected (NOT DETECT); Respiratory Syncytial Virus B Not Detected (NOT DETECT); SARS-COV-2 Not Detected (NOT DETECT)
[2024-02-21] MEDS: AZITHROMYCIN ADD-Vantage 500 MG in 0.9% NaCl ADD-Vantage 250 ML 250 MG IV (17:14)
--- NOTE | 2024-02-21 17:55 | ECG_ITS ---
[facility] Date: 2024-02-21 Pat Name: Nia Varma Department: Room: 103 Gender: Female Senior Policy Advisor: : 1995 Requested By: Ryder Jerez Order Number: [id number] Nikkie MD: Eze Rogers M.D. Measurements Intervals [place] Rate: 101 P: 35 PA: 168 QRS: 47 QRSD: 97 T: 38 QT: 341 QTc: 443 Interpretive Statements SINUS TACHYCARDIA ABNORMAL RHYTHM ECG Compared to ECG 02/21/2024 03:11:35 T-wave abnormality no longer present Electronically Signed On 02-22-2024 17:11:26 DIGITAL MEDIA SALES CONSULTANT by Eze Rogers M.D. [email or web address]
--- NOTE | 2024-02-21 19:46 | ECG_ITS ---
[facility] Test Date: 2024-02-21 Pat Name: Nia Varma Department: Room: 103 Gender: Female Topographical Field Assistant: : 1995 Requested By: Ryder Jerez Order Number: [id number] Nikkie MD: Eze Rogers M.D. Measurements Intervals [place] Rate: 99 P: 9 OH: 132 QRS: 35 QRSD: 95 T: 25 QT: 357 QTc: 460 Interpretive Statements SINUS RHYTHM Compared to ECG 02/21/2024 17:55:38 Sinus tachycardia no longer present Electronically Signed On 02-22-2024 17:23:11 MILLER HEAD ASSISTANT WET PROCESS by Eze Rogers M.D. [id number]
[2024-02-21 20:31] LABS: Troponin(5th) Baseline < 6 ng/L (0-10)
[2024-02-21] MEDS: aztreonam 1,000 MG in sodium chloride 0.9% (plus) 50 ML 100 MG IV (20:41)
[2024-02-21 22:01] LABS: Glucose Point of Care 110 mg/dL (70-110)
[2024-02-21 22:34] LABS: Troponin 5 2HR Delta 0.00001 ABS# (0-10)
[2024-02-22] VITALS (11 sets, daily range): BP systolic 110–146; BP diastolic 63–82; PULSE 73–98; RESP 16–28; TEMP 36.6–36.9; O2SAT 95–98
[2024-02-22 02:51] LABS: Eosinophils # 0.2 10^3/uL (0.0-0.8); Eosinophils % 6.1 %; Hematocrit 34.7 % (36-47); Lymphocytes # 1.3 10^3/uL (0.8-4.8); Lymphocytes % 35.4 %; Mean Corpuscular HGB Conc 33.1 g/dL (30-55); Mean Corpuscular Hemoglobin 27.8 pg (27-33); Mean Platelet Volume 10.2 fL (7.4-10.4); Monocytes # 0.3 10^3/uL (0.2-0.9); Monocytes % 9.1 %; Neutrophils # 1.79 10^3/uL (1.8-7.7); Neutrophils % 49.4 %; Nucleated Red Blood Cells % 0 %; Platelet Count 179 10^3/cmm (157-399); Red Blood Count 4.13 10^6/uL (3.85-5.65); Red Cell Distribution Width 14.5 % (12.1-15.1); White Blood Count 3.62 10^3/uL (3.29-11.43)
[2024-02-22 03:05] LABS: Troponin 5 6HR Delta 0.00001 ng/L (0-12)
[2024-02-22 03:10] LABS: Anion Gap 15.8 (5-19); Blood Urea Nitrogen 5 mg/dL (6-20); C Reactive Protein 94.4 mg/L (0.0-4.9); Calcium 8.7 mg/dL (8.5-10.5); Carbon Dioxide 22 mmol/L (22-29); Chloride 104 mmol/L (98-107); Creatinine Clr Calc Pharmacy 212.8219; Glomerular Filtration Rate 119.9 mL/min (90-130); Glucose 93 mg/dL (65-115); Magnesium 2.1 mg/dL (1.7-2.3); Osmolality Calculated 283 mOsm/kg (285-295); Potassium 3.8 mmol/L (3.5-5.1); Sodium 138 mmol/L (136-145)
[2024-02-22] MEDS: aztreonam 1,000 MG in sodium chloride 0.9% (plus) 50 ML 100 MG IV ×2 (05:41→17:51)
[2024-02-22] MEDS: magnesium oxide 400 mg tablet PO ×2 (08:28→17:52)
[2024-02-22] MEDS: metoprolol tartrate 25 mg Tablet PO ×2 (08:28→20:49)
[2024-02-22] MEDS: enoxaparin 40 mg/0.4 mL Syringe SUBCUT (08:28)
[2024-02-22] MEDS: ipratropium-albuterol 3 mL Neb INHALATION (09:21)
[2024-02-22] MEDS: sodium chloride 0.9% 1,000 ML 75 ML IV (09:52)
[2024-02-22 12:11] LABS: Estmated Average Glucose 82; Hemoglobin A1C 4.5 % (4.0-6.0)
[2024-02-22 12:29] LABS: LAB Peripheral Smear Sent for Review
[2024-02-22 12:36] LABS: Creatine Phosphokinase 208 U/L (26-192); Lactate Dehydrogenase 190 U/L (135-214)
--- NOTE | 2024-02-22 13:17 | P.PN_ITS ---
Subjective 2 Subjective: Patient was seen this morning, does report cough, shortness of breath, she denies a history of diabetes, Vitals/I&O/Wt Last Vital Signs Temp 98.1 F 02/22/24 11:47 Pulse 88 02/22/24 11:47 Resp 20 H 02/22/24 11:47 BP 146/82 02/22/24 11:47 Pulse Ox 98 02/22/24 11:47 O2 Del Method Room Air 02/22/24 11:47 02/21/24 02/22/24 02/22/24 22:59 06:59 14:59 Intake Total 1780 / 2260 50 / 2310 600 / 600 Balance 1780 / 2260 50 / 2310 600 / 600 Weight last 48 hrs Weight 137.7 kg Weight 140 kg Weight 145.15 kg Physical Exam 2 Const: COMMON NORMALS: no acute distress and patient oriented x3 Resp: COMMON NORMALS: normal respiratory effort, No retractions, No use of accessory muscles and clear to auscultation bilaterally AUSCULTATION: clear to auscultation bilaterally Cardio: COMMON NORMALS: regular rate, regular rhythm, S1 normal heart sound present and S2 normal heart sound present RATE: regular rate RHYTHM: r egular rhythm HEART SOUNDS: S1 normal heart sound present and S2 normal heart sound present GI: COMMON NORMALS: Normal to inspection, nondistended, normoactive bowel sounds present and non-tender Extremity: COMMON NORMALS: no pedal edema Neuro: COMMON NORMALS: patient oriented x3 Psych: COMMON NORMALS: mental status grossly normal Data 02/22/24 02:25 02/22/24 02:25 Micro: Microbiology 02/22/24 01:00 Gram Stain - Final Sputum - Expectorated Sputum 02/21/24 08:41 Group A Streptococcus Rapid Screen - Preliminary Throat 02/21/24 04:52 Blood Culture - Preliminary Blood NEGATIVE TO DATE 02/21/24 04:55 Blood Culture - Preliminary Blood NEGATIVE TO DATE A&P Assessment and plan (1) Sinus tachycardia: (2) Obesity: Qualifiers: Obesity type: due to excess calories Obesity classification: adult class 3 (BMI >= 40) Serious obesity comorbidity presence: with serious comorbidity Body mass index: BMI 40.0-44.9 Qualified Code(s): E66.01 - Morbid (severe) obesity due to excess calories; Z68.41 - Body mass index [BMI] 40.0- 44.9, adult (3) Splenomegaly: (4) Pneumonia: Plan Atypical pneumonia -CT of the chest shows infiltrates, with mild central adenopathy - azithromycin - aztreonam -Sputum culture Sinus tachycardia, resolving Rule out atrial flutter Off fluids Fever 100.9, concern for viral infection Respiratory panel unremarkable Hypomagnesemia: Replenished with p.o. regimen TSH unremarkable, d dimer 0.[address]/CT angio chest PE protcl [id number] IMPRESSION: 1. 19 cm splenomegaly. Correlate clinically for cause. 2. Minimal infiltrates with mild central adenopathy, likely reactive but given the splenomegaly a neoplastic process should be considered. Sinus tachycardia, telemetry monitoring Cardiac echo CONCLUSIONS Left ventricular ejection fraction is estimated at 65%. No regional wall motion abnormalities. Relative hypokinesia of the apical septum could be nonspecific finding, cannot exclude ischemia Normal cardiac chamber sizes. No intracardiac masses. No pericardial effusion. Trace tricuspid valve regurgitation. Estimated pulmonary artery peak systolic pressure, within normal limit No similar previous studies are available for comparison -No chest pain, no significant troponin elevation, no acute ST-T wave changes Add low-dose metoprolol Splenomegaly, pulmonary adenopathy Endorses to vape Endorsing history of breast lump Endorsing history of waking up drenched in sweat, back pain, CT abdomen pelvis shows splenomegaly CEA, CA125 requested, ebv panel, hiv, acute hep within normal limits Patient will need hematology referral outpatient at discharge Morbidly obese,sleep apnea concerns, neeeds to see pmd Full code Cardiac diet Attestations 2 Medical Necessity Statement*: Patient requires hospitalization for atypical pneumonia, tachycardia Diagnoses Sinus tachycardia R00.0 Class 3 severe obesity due to excess calories with serious comorbidity and body mass index (BMI) of 40.0 to 44.9 in adult E66.01; Z68.41 Obesity type: due to excess calories Obesity classification: adult class 3 (BMI >= 40) Serious obesity comorbidity presence: with serious comorbidity Body mass index: BMI 40.0-44.9 Splenomegaly R16.1 Pneumonia J18.9
[2024-02-22] MEDS: AZITHROMYCIN ADD-Vantage 500 MG in 0.9% NaCl ADD-Vantage 250 ML 250 MG IV (17:47)
[2024-02-23] VITALS (7 sets, daily range): BP systolic 111–128; BP diastolic 66–80; PULSE 57–85; RESP 18–24; TEMP 36.6–37.2; O2SAT 92–97
[2024-02-23 03:26] LABS: Basophils % 0.2 %; Eosinophils # 0.3 10^3/uL (0.0-0.8); Eosinophils % 7.1 %; Hematocrit 36.8 % (36-47); Lymphocytes # 1.7 10^3/uL (0.8-4.8); Mean Corpuscular HGB Conc 32.6 g/dL (30-55); Mean Corpuscular Volume 85.8 fl (85-98); Mean Platelet Volume 10.1 fL (7.4-10.4); Monocytes # 0.3 10^3/uL (0.2-0.9); Monocytes % 7.1 %; Neutrophils # 1.82 10^3/uL (1.8-7.7); Neutrophils % 44.4 %; Nucleated Red Blood Cells % 0 %; Platelet Count 225 10^3/cmm (157-399); Red Blood Count 4.29 10^6/uL (3.85-5.65); Red Cell Distribution Width 14.3 % (12.1-15.1)
[2024-02-23 03:53] LABS: Alanine Aminotransferase 35 U/L (0-33); Alkaline Phosphatase 81 U/L (35-105); Anion Gap 16.9 (5-19); Aspartate Amino Transferase 17 U/L (0-32); Blood Urea Nitrogen 6 mg/dL (6-20); C Reactive Protein 44.1 mg/L (0.0-4.9); Calcium 9.2 mg/dL (8.5-10.5); Carbon Dioxide 23 mmol/L (22-29); Chloride 105 mmol/L (98-107); Creatinine Clr Calc Pharmacy 180.6655; Globulin 2.9 g/dL (1.3-4.6); Glomerular Filtration Rate 100.4 mL/min (90-130); Glucose 82 mg/dL (65-115); Osmolality Calculated 289 mOsm/kg (285-295); Potassium 3.9 mmol/L (3.5-5.1); Sodium 141 mmol/L (136-145); Total Bilirubin 0.3 mg/dL (0.15-1.2); Total Protein 6.9 g/dL (6.6-8.7)
[2024-02-23 03:59] LABS: Procalcitonin 0.08 ng/mL (0-0.5)
[2024-02-23] MEDS: aztreonam 1,000 MG in sodium chloride 0.9% (plus) 50 ML 100 MG IV (05:52)
--- NOTE | 2024-02-23 09:05 | PC.CHAP ---
Pastoral Care Encounter/Spiritual Assessment Type of Contact [] Declined hand finisher visit [] Patient/Family/Request visit [] Outpatient visit [] Follow-up visit [] Physician referral [] Code/Alert [x] Routine visit [] Staff referral [] Actively dying [] Patient sleeping [] Family support [] [] Out of room [] Palliative care [] [] Receiving care in room [] Pre-surgical visit [] Trauma [] Long length of stay [] ICU visit [] Other: Relational/Emotional Strength [x] Patient feels connected with others/family/visitors/staff [] Distress [] Loneliness/isolation [] Abandonment Spirituality of Patient [x] Person of Michelle [] Attends Tenriism of their Michelle [x] Believes in Prayer [] Reads Bible or Samaritan materials [] There are Spiritual issues to be addressed Artificial Limb Maker Interventions [x] Prayer [x] Active listening [] Non-anxious presence [x] Spiritual/emotional support [] Crisis/trauma care [] Spiritual counseling [] Bereavement support [] Provided bereavement packet [] Provided Bible/devotional materials [] Provided toy/stuffed animal, coloring book to patient or family member [] Provided Communion [] Anointing/[place] [] Salvation [x] Completed spiritual assessment [] Other: Impact on Illness or Injury [] Angry [] Fearful [] Anxious [] Often cries [] Exhaustion [] Unable to work [] Unable to attend methodist [] Unable to walk/stand [] Unable to read [] Unable to drive [] Unable to eat/drink [] Unable to sleep [] Unable to be with family [] Patient intubated [] Other: Summary Time spent with patient 5 min
[2024-02-23] MEDS: enoxaparin 40 mg/0.4 mL Syringe SUBCUT (09:10)
[2024-02-23] MEDS: magnesium oxide 400 mg tablet PO (09:10)
--- NOTE | 2024-02-23 10:37 | P.DS_ITS ---
Discharge Providers Date of Admission: 02/22/24 09:33 Date of Discharge: February 23, 2024 Attending Provider at Admission: Manuel Kumar MD Attending Provider at Discharge: Ryder Jerez MD Primary Care Provider: Sophie Dennison MD Diagnoses at Discharge Discharge Diagnosis (1) Sinus tachycardia: Status: Acute (2) Obesity: Status: Acute Qualifiers: Obesity type: due to excess calories Obesity classification: adult class 3 (BMI >= 40) Serious obesity comorbidity presence: with serious comorbidity Body mass index: BMI 40.0-44.9 Qualified Code(s): E66.01 - Morbid (severe) obesity due to excess calories; Z68.41 - Body mass index [BMI] 40.0- 44.9, adult (3) Splenomegaly: Status: Acute (4) Pneumonia: Status: Acute Reason for Visit Reason for Visit: SOB Hospital Course Hospital Course This is a 28-year-old female with a past medical history of hypertension, obesity, who presents [facility] due to complaints of fevers, shortness of breath For her fever shortness of breath -Likely atypical pneumonia -Received broad-spectrum antibiotic therapy, overall clinically improved, -Cultures so far negative -Discharged on p.o. antibiotics as outpatient For patient sinus tachycardia, and hypertension, she was monitored as inpatient, monitored on low-dose metoprolol, tolerated well, tachycardia is resolved. Will be discharged on metoprolol 12.5 twice daily with close follow-up with cardiology as outpatient Patient was advised to quit vaping Morbid obesity, follow-up with primary care provider for consideration of sleep study For her echocardiogram findings CONCLUSIONS Left ventricular ejection fraction is estimated at 65%. No regional wall motion abnormalities. Relative hypokinesia of the apical septum could be nonspecific finding, cannot exclude ischemia Normal cardiac chamber sizes. No intracardiac masses. No pericardial effusion. Trace tricuspid valve regurgitation. Estimated pulmonary artery peak systolic pressure, within normal limit No similar previous studies are available for comparison -No chest pain complaints, no acute ST-T wave changes on EKG, no significant troponin leak -Continue to monitor, follow-up with cardiology as outpatient For splenomegaly, pulmonary adenopathy -Likely reactive, likely viral illness -Patient was advised to follow-up with oncology as outpatient -Please follow-up with cardiology for your tachycardia take metoprolol as prescribed -Please take antibiotics as prescribed, do not breast-feed or pump during this time - Please continue to wear facemask, hand wash, around your -Avoid contact sports -If you have sudden onset left upper quadrant pain, fevers come back to the emergency room -Follow-up with oncology for your splenomegaly, -Discussed with primary care provider about mammography in 1 month Physical Exam Const: COMMON NORMALS: no acute distress and patient oriented x3 Resp: COMMON NORMALS: normal respiratory effort, No retractions, No use of accessory muscles and clear to auscultation bilaterally AUSCULTATION: clear to auscultation bilaterally Cardio: COMMON NORMALS: regular rate, regular rhythm, S1 normal heart sound present and S2 normal heart sound present RATE: regular rate RHYTHM: regular rhythm HEART SOUNDS: S1 normal heart sound present and S2 normal heart sound present GI: COMMON NORMALS: Normal to inspection, nondistended, normoactive bowel sounds present and non-tender Extremity: COMMON NORMALS: no pedal edema Neuro: COMMON NORMALS: patient oriented x3 Psych: COMMON NORMALS: mental status grossly normal Discharge Data Studies Completed and Pending Completed Studies During Hospitalization Category Date Time Status CT abdomen pelvis wo con [id number] Routine Cat Scan 02/21/24 08:01 Completed CTA chest [CT angio chest PE protcl [id number]] Stat Cat Scan 02/21/24 01:57 Completed XR hand LT 2V [id number] Routine Exams 02/21/24 09:49 Completed CV. echo complete* [id number] Routine Ultrasound 02/21/24 07:29 Completed Pending at discharge Category Date Time Status Bartonella Henselae AB w/Titer Routine Lab 02/22/24 14:25 Received Bartonella Species AB(IgG,IgM) Routine Lab 02/22/24 14:25 Received Blood Culture Stat Lab 02/21/24 04:52 Results C Reactive Protein AM LABS Lab 02/24/24 04:00 Ordered C Reactive Protein AM LABS Lab 02/25/24 04:00 Ordered Complete Blood Count w/Auto AM LABS Lab 02/24/24 04:00 Ordered Complete Blood Count w/Auto AM LABS Lab 02/25/24 04:00 Ordered Comprehensive Metabolic Panel AM LABS Lab 02/24/24 04:00 Ordered Comprehensive Metabolic Panel AM LABS Lab 02/25/24 04:00 Ordered EBV IGG & IGM Stat Lab 02/21/24 09:58 Received EBV Viral Capsid AB IGM Stat Lab 02/21/24 09:58 Received Ehrlichia Chaffeensis IGG,IGM Routine Lab 02/22/24 14:25 Received Malaria/Babesia/Other Parasite Routine Lab 02/22/24 14:25 Received Procalcitonin AM LABS Lab 02/24/24 04:00 Ordered Procalcitonin AM LABS Lab 02/25/24 04:00 Ordered Sputum Culture and Gram Stain Routine Lab 02/21/24 08:05 Results Streptococcus Culture Group A Routine Lab 02/21/24 08:41 Results Radiology Impressions Chest CTA 02/21/24 01:57 IMPRESSION: 1. 19 cm splenomegaly. Correlate clinically for cause. 2. Minimal infiltrates with mild central adenopathy, likely reactive but given the splenomegaly a neoplastic process should be considered. Abdomen/Pelvis CT 02/21/24 08:01 IMPRESSION: Splenomegaly. Hand X-Ray 02/21/24 09:49 IMPRESSION: No acute findings. Laboratory Results WBC 4.10 10^3/uL (3.29-11.43) 02/23/24 02:27 RBC 4.29 10^6/uL (3.85-5.65) 02/23/24 02:27 Hgb 12.00 g/dL (11.27-16.99) 02/23/24 02:27 Hct 36.8 % (36-47) 02/23/24 02:27 MCV 85.8 fl (85-98) 02/23/24 02:27 MCH 28.0 pg (27-33) 02/23/24 02:27 MCHC 32.6 g/dL (30-55) 02/23/24 02:27 RDW 14.3 % (12.1-15.1) 02/23/24 02:27 Plt Count 225 10^3/cmm (157-399) 02/23/24 02:27 MPV 10.1 fL (7.4-10.4) 02/23/24 02:27 Neut % (Auto) 44.4 % 02/23/24 02:27 Lymph % (Auto) 41.0 % 02/23/24 02:27 [place]gs % (Auto) 7.1 % 02/23/24 02:27 Eos % (Auto) 7.1 % 02/23/24 02:27 Baso % (Auto) 0.2 % 02/23/24 02:27 Neut # (Auto) 1.82 10^3/uL (1.8-7.7) 02/23/24 02:27 Lymph # (Auto) 1.7 10^3/uL (0.8-4.8) 02/23/24 02:27 [place] # (Auto) 0.3 10^3/uL (0.2-0.9) 02/23/24 02:27 Eos # (Auto) 0.3 10^3/uL (0.0-0.8) 02/23/24 02:27 Baso # (Auto) 0.0 10^3/uL (0.0-0.1) 02/23/24 02:27 Nucleated RBC % (auto) 0 % 02/23/24 02:27 Nucleated RBCs # 0.0 /100WBC 02/23/24 02:27 Peripher Smr Path Cons Sent for review 02/22/24 02:25 ESR 25 mm/hr (0-15) H 02/21/24 09:58 Haptoglobin 284.0 mg/L (30-200) H 02/22/24 02:25 D-Dimer 0.74 ug/mLFEU (0-0.59) H 02/21/24 04:55 Sodium 141 mmol/L (136-145) 02/23/24 02:27 Potassium 3.9 mmol/L (3.5-5.1) 02/23/24 02:27 Chloride 105 mmol/L (98-107) 02/23/24 02:27 Carbon Dioxide 23 mmol/L (22-29) 02/23/24 02:27 Anion Gap 16.9 (5-19) 02/23/24 02:27 BUN 6 mg/dL (6-20) 02/23/24 02:27 Creatinine 0.7 mg/dL (0.5-0.9) 02/23/24 02:27 GFR Calculation 100.4 mL/min (90-130) 02/23/24 02:27 Glucose 82 mg/dL (65-115) 02/23/24 02:27 POC Glucose 110 mg/dL (70-110) 02/21/24 21:41 Estimat Average Glucose 82 02/22/24 02:25 Hemoglobin A1c 4.5 % (4.0-6.0) 02/22/24 02:25 Calculated Osmolality 289 mOsm/kg (285-295) 02/23/24 02:27 Calcium 9.2 mg/dL (8.5-10.5) 02/23/24 02:27 Magnesium 2.1 mg/dL (1.7-2.3) 02/22/24 02:25 Total Bilirubin 0.3 mg/dL (0.15-1.2) 02/23/24 02:27 AST 17 U/L (0-32) 02/23/24 02:27 ALT 35 U/L (0-33) H 02/23/24 02:27 Alkaline Phosphatase 81 U/L (35-105) 02/23/24 02:27 Lactate Dehydrogenase 190 U/L (135-214) 02/22/24 02:25 Creatine Kinase 208 U/L (26-192) H 02/22/24 02:25 Troponin T Baseline < 6 ng/L (0-10) 02/21/24 19:50 Troponin T 120 Minute 6.00 ng/L (0-10) 02/21/24 21:48 Delta Troponin T 0.27239 ABS# (0-10) 02/21/24 21:48 Troponin T Hi Sens 6Hr 6.00 ng/L (0-10) 02/22/24 02:25 Troponin T Hi Sens 6Hr Delta 0.06441 ng/L (0-12) 02/22/24 02:25 C-Reactive Protein 44.1 mg/L (0.0-4.9) H 02/23/24 02:27 Total Protein 6.9 g/dL (6.6-8.7) 02/23/24 02:27 Albumin 4.0 g/dL (3.5-5.2) 02/23/24 02:27 Globulin 2.9 g/dL (1.3-4.6) 02/23/24 02:27 Carcinoembryonic Ag 0.6 ng/mL (0.0-4.7) 02/21/24 04:55 CA 125 Antigen 9.5 U/mL (0-35) 02/21/24 04:55 Procalcitonin 0.08 ng/mL (0-0.5) 02/23/24 02:27 TSH 1.31 uIU/mL (0.27-4.20) 02/20/24 17:16 HCG, Qual Negative (Negative) 02/21/24 04:55 Urine Color Yellow (Yellow) 02/21/24 07:12 Urine Appearance Clear (CLEAR) 02/21/24 07:12 Urine pH 6.5 (5-7) 02/21/24 07:12 Ur Specific [place] 1.041 (1.005-1.030) H 02/21/24 07:12 Urine Protein Negative (Negative) 02/21/24 07:12 Urine Glucose (UA) Negative (Normal) 02/21/24 07:12 Urine Ketones Negative (Negative) 02/21/24 07:12 Urine Blood Negative (Negative) 02/21/24 07:12 Urine Nitrate Negative (Negative) 02/21/24 07:12 Urine Bilirubin Negative (Negative) 02/21/24 07:12 Urine Urobilinogen 2.0 mg/dL (Negative) H 02/21/24 07:12 Ur Leukocyte Esterase Negative (Negative) 02/21/24 07:12 Urine RBC 0-2 /hpf (0-2) 02/21/24 07:12 Urine WBC 0-5 /hpf (0-5) 02/21/24 07:12 Ur Squamous Epith Cells 0-5 /hpf (0-5) 02/21/24 07:12 Amorphous Sediment Not Reportable 02/21/24 07:12 Urine Bacteria None seen /hpf (NONE) 02/21/24 07:12 Hyaline Casts 0.40 /lpf 02/21/24 07:12 Nasal MRSA (PCR) Not detected (Not Detecte) 02/21/24 08:41 Urine Opiates Screen Positive ng/mL (Negative) H 02/21/24 07:12 Ur Barbiturates Screen Negative ng/mL (Negative) 02/21/24 07:12 Ur Phencyclidine Scrn Negative ng/mL (Negative) 02/21/24 07:12 Ur Amphetamines Screen Negative ng/mL (Negative) 02/21/24 07:12 U Benzodiazepines Scrn Negative ng/mL (Negative) 02/21/24 07:12 Urine Cocaine Screen Negative ng/mL (Negative) 02/21/24 07:12 U Marijuana (THC) Screen Negative ng/mL (Negative) 02/21/24 07:12 Adenovirus (PCR) Not detected (NOT DETECT) 02/21/24 09:53 C. pneumoniae DNA (PCR) Not detected (NOT DETECT) 02/21/24 09:53 Coronavirus 229E (PCR) Not detected (NOT DETECT) 02/21/24 09:53 Hepatitis A IgM Ab Non-reactive (Nonreactive) 02/21/24 09:58 Hep Bs Antigen Non-reactive (Nonreactive) 02/21/24 09:58 Hep B Core IgM Ab Non-reactive (Nonreactive) 02/21/24 09:58 Hepatitis C Antibody Non-reactive (Nonreactive) 02/21/24 09:58 Monoscreen Negative (Negative) 02/21/24 04:55 HIV 1&2 Ab & HIV 1 Ag Non-reactive (Non-Reactiv) 02/21/24 09:58 HIV 1&2 Antibody Non-reactive (Non-Reactiv) 02/21/24 09:58 Human Metapneumovir PCR Not detected (NOT DETECT) 02/21/24 09:53 Influenza A (H1) PCR Not detected (NOT DETECT) 02/21/24 09:53 Influ A (H1/09) PCR Not detected (NOT DETECT) 02/21/24 09:53 Influenza A (H3) PCR Not detected (NOT DETECT) 02/21/24 09:53 Influenza Type A (PCR) Not detected (NOT DETECT) 02/21/24 09:53 Influenza Type B (PCR) Not detected (NOT DETECT) 02/21/24 09:53 M. pneumoniae (PCR) Not detected (NOT DETECT) 02/21/24 09:53 Parainfluenza 1 (PCR) Not detected (NOT DETECT) 02/21/24 09:53 Parainfluenza 2 (PCR) Not detected (NOT DETECT) 02/21/24 09:53 Parainfluenza 3 (PCR) Not detected (NOT DETECT) 02/21/24 09:53 Parainfluenza 4 (PCR) Not detected (NOT DETECT) 02/21/24 09:53 RSV Type A (PCR) Not detected (NOT DETECT) 02/21/24 09:53 RSV Type B (PCR) Not detected (NOT DETECT) 02/21/24 09:53 Entero/Rhino (PCR) Not detected (NOT DETECT) 02/21/24 09:53 SARS-CoV-2 (PCR) Not detected (NOT DETECT) 02/21/24 09:53 Group A Strep Rapid Negative (Negative) 02/21/24 08:41 Vitals Last Vital Signs Temp 97.9 F 02/23/24 08:00 Pulse 74 02/23/24 08:00 Resp 18 02/23/24 08:00 BP 128/71 02/23/24 08:00 Pulse Ox 93 02/23/24 08:00 O2 Del Method Room Air 02/23/24 04:00 Discharge Plan Discharge Patient Disposition: Home Condition: Stable Prescriptions: New metoprolol tartrate 25 mg Tablet 12.5 mg PO BID@0900,2100 30 Days Qty: 30 0RF azithromycin 250 mg tablet 250 mg PO DAILY 3 Days Qty: 3 0RF Continued ibuprofen 800 mg tablet 800 mg PO Q8H PRN (Reason: pain) Qty: 30 0RF metformin 500 mg Tablet 500 mg PO DAILY ferrous sulfate [iron] 325 mg (65 mg iron) Tablet 325 mg PO DAILY Discontinued sulfamethoxazole-trimethoprim [Bactrim DS] 800-160 mg tablet 1 tab PO Q12H 10 Days Qty: 20 0RF Patient Comments: prescribed 02/20/24 Discharge Orders: Discharge Order (Routine); Ordered 02/23/24 Ordered By: Ryder Jerez Referrals: Aruna Hallman MD [Hospitalist] - 1 month (splenomegaly) Manuel Lou MD [Physician] - 1-3 days (tachycardia) Discharge Diet: Cardiac Discharge Activity: Resume usual activity Patient Instructions: Opioid Safety Activity Restrictions/Additional Instructions: -Please follow-up with cardiology for your tachycardia take metoprolol as pr escribed -Please take antibiotics as prescribed, do not breast-feed or pump during this time - Please continue to wear facemask, hand wash, around your -Avoid contact sports -If you have sudden onset left upper quadrant pain, fevers come back to the emergency room -Follow-up with oncology for your splenomegaly, -Discussed with primary care provider about mammography in 1 month Discharge Attestations Time Spent in Discharge Care*: greater than 30 min Quality Metrics Clinical Quality Measures [ No reported AMI, CVA or VTE this stay] Coding Level of Care Code 10250 Total time (in minutes) for Discharge: 45 Diagnoses Sinus tachycardia R00.0 Class 3 severe obesity due to excess calories with serious comorbidity and body mass index (BMI) of 40.0 to 44.9 in adult E66.01; Z68.41 Obesity type: due to excess calories Obesity classification: adult class 3 (BMI >= 40) Serious obesity comorbidity presence: with serious comorbidity Body mass index: BMI 40.0-44.9 Splenomegaly R16.1 Pneumonia J18.9
[2024-02-23 13:15] LABS: EBV IGM TEST <36.00 U/mL; EBV Viral Capsid AB IGM <36.00 U/mL
[2024-02-25 17:59] LABS: Bartonella Henselae IgG AB Negative
== END 2024-02-23 12:44 | disposition home or self-care (01) | DRG 194 ==
LOC: ER 02-21 04:52 → CSU 02-21 08:07
PROVIDERS: Admitting Provider Internal Medicine; Emergency Provider Emergency Medicine; PCP Family Medicine; Visit Provider Family Medicine
DX: J18.9 Pneumonia, unspecified organism (principal); Z68.42 Body mass index [BMI] 45.0-49.9, adult; R00.0 Tachycardia, unspecified; E66.01 Morbid (severe) obesity due to excess calories; R16.1 Splenomegaly, not elsewhere classified; I10 Essential (primary) hypertension; E83.42 Hypomagnesemia; R59.0 Localized enlarged lymph nodes; F32.A Depression, unspecified; G47.00 Insomnia, unspecified; Z82.3 Family history of stroke; Z83.3 Family history of diabetes mellitus; Z83.49 Family history of other endocrine, nutritional and metabolic diseases; Z80.3 Family history of malignant neoplasm of breast; Z80.41 Family history of malignant neoplasm of ovary
CPT/HCPCS: 36415; 36416; 71275; 73120; 74176; 80048; 80053; 80074; 80306; 80503; 81001; 82378; 82550; 82962; 83010; 83036; 83615; 83735; 84145; 84443; 84484; 84703; 85025; 85378; 85651; 86140; 86304; 86308; 86611; 86664; 86665; 86666; 87040; 87070; 87081; 87205; 87207; 87486; 87581; 87633; 87806; 87880; 93005; 93306; 94640; 96365; 96372; 96375; 99285; A9270; G0378; J0456; J1650; J1956; J3490; J7030; J7050

== ENCOUNTER 2024-09-30 18:39 | Emergency (ER) | payer MEDICAID, SELFPAY ==
--- OUTSIDE RECORDS SUMMARY | 2024-09-30 18:45 | XMS_ITS | Encounter Summary ---
Author Organization [facility] Address [address] [place] [address] Care Team Providers Care Gas Scrubber Operator Name Role Phone Marek Calvo MD Primary Care Provider [phone] Encounter Details Date Type Department Care Team (Late st Contact Info) Description 11/08/2023 Telephone [facility] and Delivery [address] [place] [address] Edwar Silver III, MD [address] [place] [phone] Social History Tobacco Use Types Packs/Day Years Used Date Smoking Tobacco: Never Smokeless Tobacco: Never Alcohol Use Standard Drinks/Week Comments Not Currently 0 (1 standard drink = 0.6 oz pur e alcohol) Comments Yes Sex and Gender Information Value Date Recorded Sex Assigned at Not on file Legal Sex Female 6:32 AM FIELD APPLICATIONS SPECIALIST Gender Identity Not on file Sexual Orientation Not on file documented as of this encounter Miscellaneous Notes * Telephone Encounter - Sandra Gentile RN - 11/08/2023 11:50 AM CDT Triage Nurse Call 11/08/2023 11:50 AM Nia Varma Current Physician: Dr. Edwar Silver Estimated Date of Delivery: 12/14/23 Gestational Age: 34w6d Reason for Call: Brain fog/tired/hip pain Normal movement: yes Contractions Present: no Leaking Present: denies Vaginal Bleeding: no [place]: N/A Last Vaginal Exam: Complications with : Chronic HTN Relevant Medical History: Active Problems: * No active hospital problems. * Patient Active Problem List Diagnosis Code Previous delivery, antepartum O34.219 Morbid obesity with body mass index of 40.0-49.9 E66.01 Chronic hypertension in O10.919 34 weeks gestation of Z3A.34 Supervision of high risk in third trimester O09.93 Morbid obesity E66.01 Acute reaction to situational stress F43.0 Past Medical History: Diagnosis Date Congestive heart failure 2018 Hypertension If Covid/flu symptoms add .COVIDFLUOBTRIAGESYMPTOMSCREEN Advice Given:Pt call with c/o brain fog , tiredness, mild headache, and hip pain. PT states she iswaiting for her friend to bring BP cuff to check BPS. No visual changes, epigastric pain, n/v. RN advised pt to check BP and call with reading. Parameters reviewed, instructions on how to take a BP at home. Pt verbalized understanding. Sandra Gentile RN documented in this encounter Plan of Treatment Upcoming Encounters Date Type Department Care Team (Late st Contact Info) Description 01/27/2025 10:20 AM FIELD APPLICATIONS SPECIALIST Office Visit [address] [phone] Le Geronimo FNP [address] [place] [phone] 03/24/2025 10:40 AM FIELD APPLICATIONS SPECIALIST Office Visit [address] [phone] Le Geronimo FNP [address] [place] [phone] documented as of this encounter Visit Diagnoses Not on filedocumented in this encounter Additional Health Concerns Assessment Noted Time PHQ-9 Depression Total Score: 1 04/09/19 24 2:31 PM FIELD APPLICATIONS SPECIALIST documented as of this encounter Care Teams Gas Scrubber Operator Relationship Specialty Start Date End Date Marek Calvo MD [address] [place] [address] [phone] PCP - General Family Practice 04/09/23 documented as of this encounter
--- OUTSIDE RECORDS SUMMARY | 2024-09-30 18:46 | XMS_ITS | Clinical Summary ---
Author Organization [facility] Address [address] [facility] [facility] Attn: [place] [address] Care Team Providers Care Parts Manager Name Role Phone Marek Calvo MD Primary Care Provider [phone] Allergies Active Allergy Reactions Criticality Noted Date Comments Faucett Swelling Low 04/09/2023 Medications ferrous sulfate 325 mg (65 mg iron) tablet Take 1 Tablet (325 mg) by mouth daily. 30 Tablet 3 4 Active Additional Information Patient not taking.Reported on 09/21/2024 cholecalcifero l 1,250 mcg (50,000 unit) CapsuleIndicat ions:Vitamin D deficiency Take 1 Capsule (50,000 Units) by mouth every 7 days. 12 Capsule 3 5 Active Additional Information Patient not taking.Reported on 09/21/2024 tirzepatide, weight loss, (Zepbound) 2.5 mg/0.5 mL Pen InjectorIndica tions:Morbid obesity with body mass index of 40.0-49.9 (CMS/HCC) Inject 0.5 mL (2.5 mg) by subcutaneous injection every 7 days. 2 mL 3 5 Active nitrofurantoin (MACROBID) 100 mg capsule Take 1 Capsule (100 mg) by mouth 2 times daily for 7 days. 14 Capsule 5 09/29/19 Active Problems Problem Noted Date Diagnosed Date Hidradenitis suppurativa 04/14/2024 Vitamin D deficiency 04/11/2024 Insulin resistance 01/29/2024 Acute reaction to situational stress 09/10/2023 Chronic hypertension in 08/07/2023 Morbid obesity with body mass index of 40.0-49.9 04/09/2023 Assessment & Plan (04/11/2024 7:11 PM TORPEDO MAN): >>ASSESSMENT AND PLAN FOR MORBID OBESITY (CMS/HCC) WRITTEN ON 03/03/2024 2:58 PM BY LE GERONIMO FNP Body mass index is 44.77 kg/m . BMI 40 or above. Counseled regarding the benefits of a low calorie, well-being balanced diet and daily exercise. Resolved Problems Problem Noted Date Diagnosed Date Resolved Date Routine follow-up 12/09/2023 04/11/2024 delivery delivered 12/09/2023 04/11/2024 Gestational hypertension, third trimester 11/13/2023 12/09/2023 37 weeks gestation of 08/11/2023 12/09/2023 Congestive heart failure due to cardiomyopathy 08/11/2023 11/05/2023 Supervision of high risk pre gnancy in third trimester 08/11/2023 12/09/2023 Obesity affecting in third trimester 08/11/2023 09/04/2023 Previous delivery, antepartum 04/09/2023 12/09/2023 Supervision of normal 04/09/2023 09/01/2023 Encounters Date Type Department Care Team Description 09/26/2024 Orders Only [address] [phone] Le Geronimo FNP Morbid obesity with body mass index of 40.0-49.9 (CMS/HCC) (Primary Dx) 09/21/2024 10:40 AM CDT Office Visit [address] [phone] Le Geronimo FNP Urination pain (Primary Dx); Hematuria, unspecified type; Tubal ligation evaluation; Nexplanon removal 09/14/[address] [phone] Marek Calvo MD Remote Monitoring 08/31/2024 External Device Data STL ABSTRACTION Provider, Abstract 08/31/2024 External Device Data STL ABSTRACTION Provider, Abstract 08/23/2024 External Device Data STL ABSTRACTION Provider, Abstract 08/16/2024 External Device Data STL ABSTRACTION Provider, Abstract 08/02/2024 External Device Data STL ABSTRACTION Provider, Abstract 07/26/2024 External Device Data STL ABSTRACTION Provider, Abstract 07/26/[address] [phone] Marek Calvo MD Question; Patient Communication 07/19/2024 External Device Data STL ABSTRACTION Provider, Abstract 07/08/2024 External Device Data STL ABSTRACTION Provider, Abstract from Last 3 Months Immunizations Immunization Administration Dates Next Due (RABAVERT)(ALL AGES) RABIES VACCINE, FIBROBLAST, 1ML, IM 02/24/2023 Hepatitis B Vaccine, Unspecified Formulation ,1996 Family History Relation Name Status Comments Father Mother Social History Tobacco Use Types Packs/Day Years Used Date Smoking Tobacco: Never Smokeless Tobacco: Never Tobacco Cessation:Counseling Given: Not Answered Alcohol Use Standard Drinks/Week Comments Not Currently 0 (1 standard drink = 0.6 oz pur e alcohol) Comments No Sex and Gender Information Value Date Recorded Sex Assigned at Not on file Legal Sex Female 6:32 AM TORPEDO MAN Gender Identity Not on file Sexual Orientation Not on file Last Filed Vital Signs Vital Sign Reading Time Taken Comments Blood Pressure 118/80 09/21/2024 10:30 AM CDT Pulse 110 09/21/2024 10:30 AM CDT Temperature 36.6 C (97.8 F) 09/21/2024 10:30 AM CDT Respiratory Rate 20 09/21/2024 10:30 AM CDT Oxygen Saturation 98% 09/21/2024 10:30 AM CDT Inhaled Oxygen Concentration - - Weight 144.2 kg (318 lb) 09/21/2024 10:30 AM CDT Height 175.3 cm (5' 9 ) 09/21/2024 10:30 AM CDT Body Mass Index 46.96 09/21/2024 10:30 AM CDT Plan of Treatment Upcoming Encounters Date Type Department Care Team (Late st Contact Info) Description 01/27/2025 10:20 AM TORPEDO MAN Office Visit [facility] [address] [phone] Le Geronimo, EXTRUDER OPERATOR MULTIPLE [address] [place] [phone] 03/24/2025 10:40 AM TORPEDO MAN Office Visit [facility] [address] [phone] Le Geronimo, DAVID [address] [place] [phone] Health Maintenance Due Date Last Done Comments HEPATITIS B VACCINES (3 of 3 - 3-dose series) 1996 1996, 1996 HPV VACCINES (1 - 3-dose series) 2011 DTAP/TDAP/TD VACCINES (1 - Tdap) 2015 Preventative Visit-Managed Medicaid 2015 HPV/Cotest (21-29) 2017 INFLUENZA VACCINE (#1) 2024 , 04/23/2023, 04/09/2023 CERVICAL CANCER SCREENING 04/14/2027 PAP SMEAR 04/14/2027 04/14/2024 Procedures Procedure Name Priority Date/Time Associated Diagnosis Comments POC URINALYSIS DIPSTICK AUTOMATED Routine 09/21/2024 10:48 AM CDT Urination pain URINE CULTURE Routine 09/21/2024 10:48 AM CDT Hematuria, unspecified type TN RMVL FOREIGN BODY UPPER ARM/ELBOW SUBCUTANEOUS Routine 09/21/2024 10:40 AM CDT Nexplanon removal CERV/VAG CYTO AGE BASED SCREEN PAP W CT/NG, TRICH Routine 04/14/2024 10:40 AM TORPEDO MAN Screening for malignant neoplasm of cervix from Last 3 Months or Most Recently Relevant to Health Maintenance Results * (ABNORMAL) POC URINALYSIS DIPSTICK AUTOMATED (09/21/2024 10:48 AM CDT) COLOR UA POC Yellow Pale to Dark Yellow [facility] CLARITY UA POC Turbid(A) Clear, Other [facility] GLUCOSE UA POC Negative Negative, Normal [facility] BILIRUBIN UA POC Negative Negative [facility] KETONES UA POC Negative Negative [facility] SPECIFIC GRAVITY UA POC 1.020 1.000 - 1.030 [facility] BLOOD UA POC 3+(A) Negative [facility] C LINIC [facility] PH UA POC 7.0 5.0 - 8.0 [facility] CLIN IC [facility] PROTEIN UA POC Trace(A) Negative [facility] UROBILINOGEN UA POC 0.2 <2.0 mg/dL [facility] NITRITE UA POC Negative Negative [facility] LEUKOCYTE ESTERASE UA POC Trace(A) Negative [facility] KIT LOT NUMBER POC [phone] [facility] KIT EXP DATE POC 06-15-2025 [facility] Urine 09/21/2024 10:4 8 AM CDT Le Geronimo EXTRUDER OPERATOR MULTIPLE POINT OF CARE TESTING Fin al Result [facility] CLIA# [id number] [address] [place] [address] * URINE CULTURE (09/21/2024 10:48 AM CDT) URINE CULTURE SEE NOTE [facility] Comment: CULTURE, URINE, ROUTINE Micro Number: [id number] Test Status: Final Specimen Source: Urine, clean catch Specimen Quality: Adequate Result: Mixed genital marguerite isolated. These superficial bacteria are not indicative of a urinary tract infection. No further organism identification is warranted on this specimen. If clinically indicated, recollect clean-catch, mid-stream urine and transfer immediately to Urine Culture Transport Tube. Test Performed at: [facility] [address] [facility] [place] [address] Erica Gustafson MD Urine URINE SPECIMEN OBTAINED BY CLEAN CATCH PROCEDURE / Unknown 09/21/2024 10:48 AM CDT 09/22/2024 5:02 AM CDT Le SANDHUP MICROBIOLOGY - GENERAL OR DERABLES Final Result Performing Organization Address [facility] Co de Phone Number [facility] [phone] [facility] [address] [facility] [place] [address] * TN RMVL FOREIGN BODY UPPER ARM/ELBOW SUBCUTANEOUS (09/21/2024 10:40 AM CDT) Narrative [facility] - 09/21/2024 10:40 AM CDT Le Geronimo FNP 09/21/2024 11:49 AM Foreign Body Removal Date/Time: 09/21/2024 10:40 AM Performed by: Le Geronimo FNP Authorized by: Le Geronimo FNP Body area: skin General location: upper extremity Location details: left upper arm Anesthesia: local infiltration Anesthesia: Local Anesthetic: lidocaine 2% with epinephrine Sedation: Patient sedated: no Patient restrained: no Localization method: probed Removal mechanism: forceps and scalpel Dressing: dressing applied Tendon involvement: none Depth: subcutaneous Complexity: simple 1 objects recovered. Objects recovered: Nexplanon Post-procedure assessment: foreign body removed Patient tolerance: patient tolerated the procedure well with no immediate complications us Le HERNANDEZ PROCEDURE/MINOR SURGICAL ORDERABLES Final Result Performing Organization Address [facility] Co de Phone Number [facility] CLIA# [id number] [address] [place] [address] * CERV/VAG CYTO AGE BASED SCREEN PAP W CT/NG, TRICH (04/14/2024 10:40 AM TORPEDO MAN) COMMENT (PAP): [facility] Comment: This order for age-based cervical cancer and STI screening follows ACOG guidelines(PB 168, 140, CTQ853). See individual assays for performing site location. CLINICAL INFORMATION [facility] Comment:None given LAST MENSTRUAL PERIOD [facility] Comment:NONE GIVEN PREV PAP: [facility] Comment:NONE GIVEN PREV BX: [facility] Comment:NONE GIVEN SOURCE [facility] Comment:Endocervix ADEQUACY: [facility] Comment: Satisfactory for evaluation. Endocervical/transformation zone component present. Age and/or menstrual status not provided PAP INTERP [facility] Comment: Cytology Results: Negative for intraepithelial lesion or malignancy. COMMENT (PAP TEST) [facility] Comment: This Pap test has been evaluated with computer assisted technology. SWITCH INSPECTOR: [facility] Comment: GERONIMO BERRY(ASCP) CT Screening Location: [place] [address] [place] [address] EXPLANATORY NOTE [facility] Comment: EXPLANATORY NOTE: The Pap is a screening test for cervical cancer. It is not a diagnostic test and is subject to false negative and false positive results. It is most reliable when a satisfactory sample, regularly obtained, is submitted with relevant clinical findings and history, and when the Pap result is evaluated along with historic and current clinical information. CHLAMYDIA TRACHOMATIS RNA, TMA, UROGENITAL NOT DETECTED NOT DETECTED [facility] NEISSERIA GONORRHOEAE RNA, TMA, UROGENITAL NOT DETECTED NOT DETECTED [facility] COMMENT INFECTIOUS DISEASE [facility] Comment: The analytical performance characteristics of this assay, when used to test SurePath(TM) specimens have been determined by [facility]. The modifications have not been cleared or approved by the FDA. This assay has been validated pursuant to the CLIA regulations and is used for clinical purposes. For additional information, please refer to https://education.GoalShare.com.VivaRay/faq/YDC409 (This link is being provided for information/ educational purposes only.) TRICHOMONAS VAGINALIS,QUALITAT GEOVANY,PAP VIAL NOT DETECTED NOT DETECTED [facility] Comment: The analytical performance characteristics of this assay have been determined by [facility]. The modifications have not been cleared or approved by the FDA. This assay has been validated pursuant to the CLIA regulations and is used for clinical purposes. For additional information, please refer to http://education.Roombeats/ faq/Trichomonastma (This link is being provided for information/ educational purposes only.) Test Performed at: [facility] [address] [phone] Erica IRBY Genital SWAB OF ENDOCERVIX / Unknown 04/14/2024 10:40 AM TORPEDO MAN 04/15/2024 8:39 AM TORPEDO MAN us Edwar Silver III, MD PATHOLOGY/CYTOLOGY ORD ERABLES Final Result [facility] [phone] [facility] [address] [phone] from Last 3 Months or Most Recently Relevant to Health Maintenance Insurance [facility] [id number] RX [employer]OSS[employer] Medicaid [facility] [id number] [facility] Advance Directives For more information, please contact: [phone] * Full Code (Latest Code Status on File) Date Activated Date Inactivated Comments 11/23/2023 11:34 AM 11/26/2023 1:12 PM * Full Code Date Activated Date Inactivated Comments 11/23/2023 11:34 AM 11/23/2023 11:34 AM * Full Code Date Activated Date Inactivated Comments 11/23/2023 5:33 AM 11/23/2023 11:34 AM * Full Code Date Activated Date Inactivated Comments 11/13/2023 9:58 AM 11/13/2023 12:26 PM * Full Code Date Activated Date Inactivated Comments 09/06/2023 1:05 PM 09/06/2023 4:48 PM Care Teams Parts Manager Relationship Specialty Start Date End Date Marek Calvo MD [address] [place] [address] [place] [phone] PCP - General Family Practice 04/09/23
--- OUTSIDE RECORDS SUMMARY | 2024-09-30 18:46 | XMS_ITS | Clinical Summary ---
Author Organization [facility] Address [address] [place] [facility] [address] Care Team Providers Care Header Operator Name Role Phone Unavailable Primary Care Provider Unavailabl e Social History Tobacco Use Types Packs/Day Years Used Date Smoking Tobacco: Never Assessed Comments Unknown Sex and Gender Information Value Date Recorded Sex Assigned at Not on file Legal Sex Female 11:50 AM APPRENTICE CARPENTER Gender Identity Not on file Sexual Orientation Not on file Plan of Treatment Health Maintenance Due Date Last Done Comments HPV VACCINES (1 - 3-dose series) 2011 DTAP/TDAP/TD VACCINES (1 - Tdap) 2015 HEPATITIS B VACCINES (1 of 3 - 19+ 3-dose series) 03/20 CERVICAL CANCER SCREENING 2017 HPV/Cotest (21-29) 2017 PAP SMEAR 2017 INFLUENZA VACCINE (#1) [address] [place] [address] [place] [id number] [facility] Member Subscriber Plan / Payer (Ef fective 2017-Present) Name:Nia Varma Relation to Subscriber:Self Name:Nia Varma Payer ID:[id number] (NAIC) Group ID:[id number] Type:Medicaid Managed Care Address: [place] [phone]
--- OUTSIDE RECORDS SUMMARY | 2024-09-30 18:46 | XMS_ITS | Encounter Summary ---
Author [facility] Address [address] [place] [address] Care Team Providers Care Metal Door Assembler Name Role Phone Marek Calvo MD Primary Care Provider [phone] Reason for Referral * Medication Prior Authorization - Closed Specialty Diagnoses / Procedures Referred By Contstephie t Referred To Contact Diagnoses Morbid obesity with body mass index of 40.0-49.9 (CMS/HCC) Le Geronimo FNP [address] [place] [phone] Phone: tel: fax: Referral ID Status Reason Start Date Expiration Date Visits Re quested Visits Authorized [id number] Closed 1 1 Encounter Details Date Type Department Care Team (Late st Contact Info) Description 09/26/2024 Orders Only [facility] [address] [place] [phone] Le Geronimo FNP [address] [place] [phone] Morbid obesity with body mass index of 40.0-49.9 (CMS/HCC) (Primary Dx) Social History Tobacco Use Types Packs/Day Years Used Date Smoking Tobacco: Never Smokeless Tobacco: Never Alcohol Use Standard Drinks/Week Comments Not Currently 0 (1 standard drink = 0.6 oz pur e alcohol) Comments No Sex and Gender Information Value Date Recorded Sex Assigned at Not on file Legal Sex Female 6:32 AM DATA SYSTEMS MANAGER Gender Identity Not on file Sexual Orientation Not on file documented as of this encounter Plan of Treatment Upcoming Encounters Date Type Department Care Team (Late st Contact Info) Description 01/27/2025 10:20 AM DATA SYSTEMS MANAGER Office Visit [facility] [address] [phone] Le Geronimo [facility] [address] [place] [phone] 03/24/2025 10:40 AM DATA SYSTEMS MANAGER Office Visit [facility] [address] [phone] Le Geronimo FNP [address] [place] [phone] documented as of this encounter Visit Diagnoses Diagnosis Morbid obesity with body mass index of 40.0-49.9 (CMS/HCC)- Primary documented in this encounter Care Teams Metal Door Assembler Relationship Specialty Start Date End Date Marek Calvo MD [address] [place] [phone] PCP - General Family Practice 04/09/23 documented as of this encounter
[2024-09-30 18:47] VITALS: PULSE 103; RESP 22; O2SAT 97
[2024-09-30 18:50] VITALS: BP 123/75
[2024-09-30] MEDS: HYDROcodone-acetaminophen 7.5-325 mg Tablet 1 TAB PO (19:20)
[2024-09-30] MEDS: orphenadrine 30 mg/mL Inj 2 mL 60 MG IM (19:20)
--- NOTE | 2024-09-30 20:30 | XRR_ITS ---
PROCEDURE INFORMATION: Exam: XR Lumbosacral Spine Exam date and time: 09/30/2024 8:46 PM Age: 29 years old Clinical indication: C/O low back pain. No injury. ; Additional info: Low back pain, felt a pop TECHNIQUE: Imaging protocol: Radiologic exam of the lumbosacral spine. Views: 2 or 3 views. COMPARISON: CT chest abdpel w/*[id number] 03/21/2024 11:10 AM FINDINGS: Bones/joints: Normal. No acute fracture. Normal alignment. Soft tissues: Unremarkable. XR/XR lumbar spine 2-3V* [id number] IMPRESSION: No acute findings.
--- NOTE | 2024-09-30 20:58 | ED_ITS ---
Documented by User: COLIN Freedman 09/30/24 23:10 HPI - Back Pain/Injury General: Chief Complaint: Back Pain/Injury Stated Complaint: BACK PAIN Time Seen by Provider: 09/30/24 18:52 Source: patient Mode of arrival: ambulatory Limitations: no limitations History of Present Illness: Patient is a 29-year-old female who presents to the emergency department complaining of left lower back pain prior to arrival. 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 Reports history of sciatica, states that this feels much worse. States that the pain feels like a burning sensation, and it is causing her anxiety and fearfulness to move or walk. She states that she is having trouble standing and walking due to the pain. Has not taken any medications prior to coming in. No bowel or bladder incontinence. No saddle anesthesia. MD elicited complaint: back pain Onset (ago): minute(s) Timing: constant Severity: severe Location: left lower back Radiation: left upper leg Exacerbating factors: movement Relieving factors: none Context: while lifting Associated symptoms: Reports difficulty walking; Deny abdominal pain, fecal incontinence, fever(s) or syncope Related Data Home Medications ?Medication ?Instructions ?Recorded ?Confirmed cholecalciferol (vitamin D3) 1,250 PO 04/25/24 5 mcg (50,000 unit) capsule clindamycin phosphate 1 % topical topical 04/25/2412/10 solution Previous Rx's ?Medication ?Instructions ?Recorded ketorolac 10 mg tablet 10 mg PO Q8H PRN pain #15 ta bs 09/30/24 methocarbamol 750 mg tablet 750 mg PO Q8H 5 days #15 t abs 09/30/24 Allergies Allergy/AdvReac Type Severity Reaction Status Date / Time cefazolin Allergy Unknown family Verified 04/25/24 15:11 allergy cephalexin (From Keflex) Allergy throat Verified 04/25/24 15:11 swells metoprolol AdvReac ADR/ALGY-Pa Verified 04/25/24 15:11 lpitations Review of Systems General: Reports: 10 or more systems reviewed and unremarkable except in HPI and below Const: Denies: fever(s) Card: Denies: chest pain or syncope Resp: Denies: dyspnea GI: Denies: abdominal pain or fecal incontinence : Denies: urinary incontinence Musc: Reports: back pain, extremity pain (LLE) and limited range of motion; Denies: neck pain Skin/Breast: Denies: rash or skin pain Neuro: Reports: difficulty walking; Denies: numbness in extremities or weakness in extremities PFSH ED PFSH: Medical History Auditory hallucinations Depression Obesity Vestibular migraine Hypertension Insomnia Sinus tachycardia Surgical History H/O section Family History Grandmother Stroke maternal Hyperlipidemia maternal Breast cancer maternal Ovarian cancer maternal Family/Other Heart disease paternal side Hypertension paternal side Grandfather Diabetes maternal Mother Thyroid disease Denies family history of Colon cancer Anesthesia complication Uterine cancer Social History Smoking and tobacco/nicotine status: former use of tobacco/nicotine Alcohol intake: current Alcohol intake frequency: holidays/special occasions only Alcohol type: beer, wine and hard liquor Substance/Drug Use: never Female Reproductive History: Spontaneous abortions: No Physical Exam Const: COMMON NORMALS: patient oriented x3 and alert NUTRITIONAL APPEARANCE: obese morbidly obese ORIENTATION/CONSCIOUSNESS: Yes awake OTHER: Appears uncomfortable secondary to pain Resp: COMMON NORMALS: normal respiratory effort, No retractions, No use of a ccessory muscles and clear to auscultation bilaterally AUSCULTATION: clear to auscultation bilaterally Cardio: COMMON NORMALS: regular rate, regular rhythm, S1 normal heart sound present and S2 normal heart sound present RATE: regular rate RHYTHM: regular rhythm HEART SOUNDS: S1 normal heart sound present and S2 normal heart sound present Back/Pelvis: LUMBAR SPINE/LOWER BACK: Yes straight leg raise positive left (With minimal flexion at the hip) OTHER: Normal visual examination. No spinous process tenderness. Easily reproducible tenderness to palpation to the left paralumbar muscles. Range of motion limited with lateral rotation secondary to pain. Extremity: COMMON NORMALS: normal to inspection and full ROM Neuro: COMMON NORMALS: patient oriented x3, moves all extremities, no focal motor deficits, no sensory deficits noted, deep tendon reflexes 2+ bilaterally and gait normal SENSORIUM/ORIENTATION: Yes alert OTHER: L3, L4, L5, and S1 nerve sensations intact. Normal knee jerk and ankle jerk reflexes. Skin: COMMON NORMALS: no rashes or lesions noted GENERAL SKIN EXAM: no rashes or lesions noted Course Vital Signs: Vital signs: Vital Signs Pulse Rate 103 H 09/30/24 18:47 Respiratory Rate 22 H 09/30/24 18:47 Blood Pressure 123/75 09/30/24 18:50 Pulse Oximetry 97 09/30/24 18:47 Oxygen Delivery Me thod Room Air 09/30/24 18:47 MDM - Back Pain/Injury Medical Decision Making Patient presenting with acute onset left lower back pain after bending/twisting. Radiation down the left lower extremity, reported history of sciatica but stating that this felt worse. Minimal relief from pain medications here in the ED, though there were no red flag symptoms on history or on exam. X-ray was obtained due to her no relief of pain and this was negative for any acute fracture. We will treat at home as I do not suspect any acute emergent process, and she is encouraged to follow-up with regular provider early next week for reevaluation as she may require further imaging with any worsening of her pain. She is instructed to return with any specific new or worsening. Labs Radiology Impressions Lumbar Spine X-Ray 09/30/24 20:30 IMPRESSION: No acute findings. All radiology interpretation(s) finalized by discharge Discharge Plan Discharge Patient Disposition: Home Clinical Impression: Lumbar radiculopathy Condition: Stable Prescriptions: New ketorolac 10 mg tablet 10 mg PO Q8H PRN (Reason: pain) Qty: 15 0RF methocarbamol 750 mg tablet 750 mg PO Q8H 5 Days Qty: 15 0RF Discontinued ibuprofen 800 mg tablet 800 mg PO Q8H PRN (Reason: pain) Qty: 30 0RF No Action cholecalciferol (vitamin D3) 1,250 mcg (50,000 unit) capsule PO clindamycin phosphate 1 % solution topical Discharge Orders: Discharge ED (Routine); Ordered 09/30/24 Ordered By: Dilan Crump Referrals: Sophie Dennison MD [Primary Care Provider, Family Practice] Patient Instructions: Opioid Safety, Pain Management, Patient Portal & [facility] Instructions Activity Restrictions/Additional Instructions: Discharge Instructions: Lumbar Radiculopathy Diagnosis: Acute left lumbar radiculopathy. Lumbar X-ray is normal. No red flag symptoms (e.g., fever, unexplained weight loss, bowel/bladder dysfunction, progressive neurological deficit). Medications: - Ketorolac: Take as prescribed for pain control. NSAIDs are first-line for short-term symptom relief in acute lumbar radiculopathy. - Methocarbamol: Take as prescribed for muscle spasm. Evidence for muscle relaxants is limited and they should be used short-term only. - Hydrocodone: Use only for severe breakthrough pain, and only as prescribed. Opioids should be used sparingly and for the shortest duration possible due to risk of adverse effects and lack of evidence for long-term benefit in radiculopathy. Activity: - Remain as active as tolerated. Avoid prolonged bed rest, which has not been shown to improve outcomes and may delay recovery. - Gradually resume normal activities as pain allows. Walking and gentle movement are encouraged. Self-care and Education: - Expect gradual improvement; most patients experience significant symptom relief within 6 weeks. - Use ice or heat for comfort as needed. - Maintain good posture and avoid heavy lifting or twisting. Follow-up: - Schedule an appointment with your primary care provider early next week for reassessment. - If symptoms worsen, or if there is no improvement after several weeks, referral to orthopedics or a consumer loan specialist may be considered. When to Seek Immediate Medical Attention: - New or worsening weakness, numbness, or tingling in the legs. - Loss of bowel or bladder control. - Severe, unremitting pain not controlled by medication. - Fever, unexplained weight loss, or other systemic symptoms. Additional Notes: - Imaging (MRI/CT) is not indicated at this time given the absence of red flag symptoms and normal X-ray; it may be considered if symptoms persist beyond 4?6 weeks or if surgical intervention is contemplated. - Physical therapy and exercise-based rehabilitation may be initiated if pain allows and can be discussed at follow-up. Summary: Conservative management with NSAIDs, short-term muscle relaxant, and limited opioid use is appropriate for acute lumbar radiculopathy without red flag symptoms. Most patients improve with time and supportive care. Early follow-up is essential to monitor progress and reassess for any new concerning features. Print Language: Luxembourgish Coding Level of Care Code ED [employer] for [employer]g Fwd Documented by User: Vladimir Gilbert DO 10/01/24 02:14 HPI - Back Pain/Injury General: Chief Complaint: Back Pain/Injury Stated Complaint: BACK PAIN Time Seen by Provider: 09/30/24 18:52 Related Data Home Medications ?Medication ?Instructions ?Recorded ?Confirmed cholecalciferol (vitamin D3) 1,250 PO 04/25/24 5 mcg (50,000 unit) capsule clindamycin phosphate 1 % topical topical 04/25/2412/10 solution Previous Rx's ?Medication ?Instructions ?Recorded ketorolac 10 mg tablet 10 mg PO Q8H PRN pain #15 ta bs 09/30/24 methocarbamol 750 mg tablet 750 mg PO Q8H 5 days #15 t abs 09/30/24 Allergies Allergy/AdvReac Type Severity Reaction Status Date / Time cefazolin Allergy Unknown family Verified 04/25/24 15:11 allergy cephalexin (From Keflex) Allergy throat Verified 04/25/24 15:11 swells metoprolol AdvReac ADR/ALGY-Pa Verified 04/25/24 15:11 lpitations PFSH ED PFSH: Medical History Auditory hallucinations Depression Obesity Vestibular migraine Hypertension Insomnia Sinus tachycardia Surgical History H/O section Family History Grandmother Stroke maternal Hyperlipidemia maternal Breast cancer maternal Ovarian cancer maternal Family/Other Heart disease paternal side Hypertension paternal side Grandfather Diabetes maternal Mother Thyroid disease Denies family history of Colon cancer Anesthesia complication Uterine cancer Social History Smoking and tobacco/nicotine status: former use of tobacco/nicotine Alcohol intake: current Alcohol intake frequency: holidays/special occasions only Alcohol type: beer, wine and hard liquor Substance/Drug Use: never Course Vital Signs: Vital signs: Vital Signs Pulse Rate 103 H 09/30/24 18:47 Respiratory Rate 22 H 09/30/24 18:47 Blood Pressure 123/75 09/30/24 18:50 Pulse Oximetry 97 09/30/24 18:47 Oxygen Delivery Me thod Room Air 09/30/24 18:47 MDM - Back Pain/Injury Medical Decision Making Patient presenting with acute onset left lower back pain after bending/twisting. Radiation down the left lower extremity, reported history of sciatica but stating that this felt worse. Minimal relief from pain medications here in the ED, though there were no red flag symptoms on history or on exam. X-ray was obtained due to her no relief of pain and this was negative for any acute fracture. We will treat at home as I do not suspect any acute emergent process, and she is encouraged to follow-up with regular provider early next week for reevaluation as she may require further imaging with any worsening of her pain. She is instructed to return with any specific new or worsening. This patient was originally seen by Mr. Theron PA-C. I agree with his history, evaluation, and management. Labs Radiology Impressions Lumbar Spine X-Ray 09/30/24 20:30 IMPRESSION: No acute findings. Discharge Plan Discharge Patient Disposition: Home Clinical Impression: Lumbar radiculopathy Condition: Stable Prescriptions: New ketorolac 10 mg tablet 10 mg PO Q8H PRN (Reason: pain) Qty: 15 0RF methocarbamol 750 mg tablet 750 mg PO Q8H 5 Days Qty: 15 0RF Discontinued ibuprofen 800 mg tablet 800 mg PO Q8H PRN (Reason: pain) Qty: 30 0RF No Action cholecalciferol (vitamin D3) 1,250 mcg (50,000 unit) capsule PO clindamycin phosphate 1 % solution topical Discharge Orders: Discharge ED (Routine); Ordered 09/30/24 Ordered By: Dilan Crump Referrals: Sophie Dennison MD [Primary Care Provider, Family Practice] Patient Instructions: Opioid Safety, Pain Management, Patient Portal & [facility] Instructions Activity Restrictions/Additional Instructions: Discharge Instructions: Lumbar Radiculopathy Diagnosis: Acute left lumbar radiculopathy. Lumbar X-ray is normal. No red flag symptoms (e.g., fever, unexplained weight loss, bowel/bladder dysfunction, progressive neurological deficit). Medications: - Ketorolac: Take as prescribed for pain control. NSAIDs are first-line for short-term symptom relief in acute lumbar radiculopathy. - Methocarbamol: Take as prescribed for muscle spasm. Evidence for muscle relaxants is limited and they should be used short-term only. - Hydrocodone: Use only for severe breakthrough pain, and only as prescribed. Opioids should be used sparingly and for the shortest duration possible due to risk of adverse effects and lack of evidence for long-term benefit in radiculopathy. Activity: - Remain as active as tolerated. Avoid prolonged bed rest, which has not been shown to improve outcomes and may delay recovery. - Gradually resume normal activities as pain allows. Walking and gentle movement are encouraged. Self-care and Education: - Expect gradual improvement; most patients experience significant symptom relief within 6 weeks. - Use ice or heat for comfort as needed. - Maintain good posture and avoid heavy lifting or twisting. Follow-up: - Schedule an appointment with your primary care provider early next week for reassessment. - If symptoms worsen, or if there is no improvement after several weeks, referral to orthopedics or a consumer loan specialist may be considered. When to Seek Immediate Medical Attention: - New or worsening weakness, numbness, or tingling in the legs. - Loss of bowel or bladder control. - Severe, unremitting pain not controlled by medication. - Fever, unexplained weight loss, or other systemic symptoms. Additional Notes: - Imaging (MRI/CT) is not indicated at this time given the absence of red flag symptoms and normal X-ray; it may be considered if symptoms persist beyond 4?6 weeks or if surgical intervention is contemplated. - Physical therapy and exercise-based rehabilitation may be initiated if pain allows and can be discussed at follow-up. Summary: Conservative management with NSAIDs, short-term muscle relaxant, and limited opioid use is appropriate for acute lumbar radiculopathy without red flag symptoms. Most patients improve with time and supportive care. Early follow-up is essential to monitor progress and reassess for any new concerning features. Print Language: Luxembourgish Coding Level of Care Code ED [employer] for Melina Garcia
[2024-09-30] MEDS: HYDROcodone-acetaminophen 7.5-325 mg Tablet 2 TAB PO (22:29)
== END 2024-09-30 22:30 | disposition home or self-care (01) ==
PROVIDERS: Emergency Provider Physician Assistant; PCP Family Medicine
DX: M54.16 Radiculopathy, lumbar region (principal); Z87.891 Personal history of nicotine dependence; I10 Essential (primary) hypertension
CPT/HCPCS: 72100; 96372; 99284; J1885; J2360; J9999